=== PATIENT | female | born 1955 | race Caucasian/White ===

== ENCOUNTER 2021-02-02 11:42 | Emergency (ER) | payer MEDICARE, MEDICAID, SELFPAY ==
[2021-02-02 11:44] VITALS: BP 127/115; PULSE 66; RESP 18; TEMP 36.6; O2SAT 97; BMI 31.4
--- NOTE | 2021-02-02 11:56 | CT_ITS ---
STUDY: CT ABDOMEN AND PELVIS WITH CONTRAST REASON FOR EXAM: Female, 65 years old. Abdominal pain. Near syncope. RADIATION DOSAGE (If Supplied By Facility): CTDIvol = ( 16.88 ) mGy, DLP = ( 916.54 ) mGycm TECHNIQUE: Transaxial images were obtained from the dome of the diaphragm to the symphysis pubis without oral contrast. IV 100mL Isovue-300 was administered. Sagittal and coronal images were reconstructed. Individualized dose optimization techniques were used for this CT. COMPARISON: None. FINDINGS: The visualized lung bases are unremarkable. The visualized portions of the heart are within normal limits. Normal liver. There are surgical clips in the gallbladder fossa consistent with a prior cholecystectomy. Normal spleen. Normal pancreas. Normal bilateral adrenal glands. There is a 2.2 cm x 2.3 cm cyst in the upper medial aspect of the right kidney. Normal left kidney. Normal visualized stomach. Normal small intestine. There are multiple colonic diverticula consistent with diverticulosis. There is non-visualization of the appendix. There is scattered atherosclerotic calcification of the abdominal aorta, without a demonstrated aneurysm. Normal inferior vena cava. Normal retroperitoneum. Normal urinary bladder. There is absence of the uterus consistent with a prior hysterectomy. There is a 3.2 cm x 2.8 cm complex solid and cystic mass overlying the right external iliac artery in the right side of the pelvis. This may represent a right ovarian mass versus adenopathy. Correlation with a pelvic sonogram is recommended. Normal abdominal wall. There are degenerative changes of the visualized lumbar spine. There is a grade 1 anterior listhesis of L4 on L5 secondary to facet joint osteoarthritis. CT/Abdomen/Pelvis W IV Cont ONLY IMPRESSION: 2.2 cm x 2.3 cm cyst in the upper medial aspect of the right kidney. 3.2 cm x 2.8 cm complex solid and cystic mass overlying the right external iliac artery and the right-sided pelvis. Correlation with a pelvic sonogram is recommended. Electronically Signed: Paulino Broderick MD at 13:43 EDT , Service support ,
--- NOTE | 2021-02-02 11:57 | EDS_ITS ---
HPI History of Present Illness Chief Complaint: Nausea/Vomiting Informant: patient Narrative Narrative: 65-year-old female presents the emergency room for abdominal pain. Patient states that she recently moved to [place] from the [facility]. She states that for about 5 days she has had a pain in her bilateral flanks and left and right abdomen. She states that currently she only has the pain in the right lower abdomen. She states that it reminds her of when she had a kidney stone in the past. She notes that this morning she felt faint. She had multiple large loose bowel movements. No reported fevers. She denies any urinary symptoms. States she had some Flomax and some Ultram left over from her kidney stone so she to use that past couple nights but not last night. She saw primary care at the [facility] on Monday and is scheduled today for an ultrasound and x- rays. She states she was able to get the ultrasound done but felt faint so they called the ambulance to bring her to emergency. [facility] Medical History Aortic aneurysm Asthma Autoimmune hemolytic anemia CIDP (chronic inflammatory demyelinating polyneuropathy) Essential hypertension GBS (Guillain [place] syndrome) Kidney stone Home Medications Probiotic 02/02/21 [History Last Taken Unknown] acetaminophen [Tylenol] 650 mg PO Q6H PRN 02/02/21 [History Last Taken Unknown] albuterol sulfate 2 puff INHALATION Q4H PRN 02/02/21 [History Last Taken Unknown] alprazolam 0.25 mg PO QHS PRN 02/02/21 [History Last Taken Unknown] amlodipine 5 mg PO DAILY 02/02/21 [History Last Taken Unknown] aspirin 81 mg PO DAILY 02/02/21 [History Last Taken Unknown] biotin 1 mg PO DAILY PRN 02/02/21 [History Last Taken Unknown] calcium carbonate-vitamin D3 02/02/21 [History Last Taken Unknown] diclofenac sodium [Voltaren] 75 mg PO BID PRN 02/02/21 [History Last Taken Unknown] doxycycline monohydrate 100 mg PO BID #14 capsule 02/02/21 [Rx Last Taken Unknown] hydrochlorothiazide 12.5 mg PO DAILY 02/02/21 [History Last Taken Unknown] ipratropium bromide [Atrovent] 2 spray INTRANASAL BID 02/02/21 [History Last Taken Unknown] latanoprost 1 drp EACH EYE QHS 02/02/21 [History Last Taken Unknown] magnesium 250 mg PO DAILY 02/02/21 [History Last Taken Unknown] pregabalin [Lyrica] 50 mg PO BID 02/02/21 [History Last Taken Unknown] tamsulosin [Flomax] 0.4 mg PO QHS 02/02/21 [History Last Taken Unknown] thiamine HCl (vitamin B1) 02/02/21 [History Last Taken Unknown] timolol maleate [Timoptic] 1 drp EACH EYE DAILY 02/02/21 [History Last Taken Unknown] turmeric mg PO DAILY 02/02/21 [History Last Taken Unknown] vitamin E 02/02/21 [History Last Taken Unknown] Allergy/AdvReac Type Severity Reaction Status Date / Time levofloxacin [From Levaquin] Allergy Hives Verified 02/02/21 11:52 Penicillins Allergy Rash Verified 02/02/21 11:52 prednisone Allergy Rash Verified 02/02/21 11:52 acetaminophen [From Percocet] AdvReac PT UNSURE Verified 02/02/21 11:52 OF REACTION bee pollen AdvReac PT UNSURE Verified 02/02/21 11:52 OF REACTION cefaclor [From Ceclor] AdvReac Swelling Verified 02/02/21 11:52 ciprofloxacin AdvReac PT UNSURE Verified 02/02/21 11:52 OF REACTION clindamycin AdvReac Diarrhea Verified 02/02/21 11:52 codeine AdvReac PT UNSURE Verified 02/02/21 11:52 OF REACTION fluoxetine [From Prozac] AdvReac PT UNSURE Verified 02/02/21 11:52 OF REACTION green pepper AdvReac PT UNSURE Verified 02/02/21 11:52 OF REACTION house dust AdvReac PT UNSURE Verified 02/02/21 11:52 OF REACTION immune globulin,alpha (IgA) AdvReac PT UNSURE Verified 02/02/21 11:52 OF REACTION naproxen AdvReac Upset Verified 02/02/21 11:52 Stomach oxycodone [From Percocet] AdvReac PT UNSURE Verified 02/02/21 11:52 OF REACTION Sulfa (Sulfonamide AdvReac Rash Verified 02/02/21 11:52 Antibiotics) Surgical History Hx of cholecystectomy Social History (Updated 02/02/21 @ 12:[address] Maxim Parson DO) Smoking Status: Former smoker substance use type: does not use ROS ROS ED Constitutional Constitutional ED: Denies chills or weight loss Eyes Eyes: Denies change in vision or diplopia ENT ENT ED: Denies ear pain, rhinorrhea or sore throat Cardiovascular Cardiovascular: Denies chest pain, orthopnea, palpitations or racing heartbeat Respiratory/Chest Respiratory/Chest: Denies cough, dyspnea or orthopnea Gastrointestinal Gastrointestinal: Reports abdominal pain; Denies diarrhea, nausea or vomiting Genitourinary Genitourinary ED: Denies dysuria, hematuria or urinary frequency Musculoskeletal Musculoskeletal: Denies arthralgias or myalgias Integumentary Denies abscess or rash Neurologic Neurologic: Denies headache(s) or weakness Psychiatric Psychiatric: Denies anxiety, depression, suicidal ideation or suicidal thoughts Endocrine Endocrinology: Denies polydipsia, polyphagia or polyuria Allergic/Immunologic Allergic/Immunologic ED: Denies mouth swelling, tongue swelling or urticaria EXAM Physical Exam Const Vital Signs: 02/02/21 11:44 02/02/21 12:38 Temperature 97.8 F Temperature Source Temporal Pulse Rate 66 63 Respiratory Rate 18 12 Blood Pressure 127/115 H 139/93 H Blood Pressure Mean 119 108 Pulse Ox 97 97 Oxygen Delivery Method Room Air Room Air Positive well nourished and well developed General Appearance ED: well developed HEENT Reports normocephalic, head/scalp atraumatic and moist mucous membranes Eyes PERRL and EOMs intact bilaterally Neck no lymphadenopathy, supple and no JVD Resp normal respiratory effort and clear to auscultation bilaterally Cardio regular rate, regular rhythm and no murmurs GI Palpation: soft and tender RLQ; Negative for guarding or rebound tenderness present Back/Spine no CVA tenderness and normal ROM Extremity normal to inspection General Extremety ED: Negative for edema General Extremity: Negative for edema Neuro oriented x3 and CN's II-XII intact bilaterally Sensorium / Orientation: alert Motor Exam: strength 5/5 throughout Psych mental status grossly normal Mood & Affect: Negative for depressed or tearful Skin no rashes or lesions noted and no wounds MDM MDM MDM Narrative Medical decision making narrative: Basic blood work is negative. Urinalysis is normal. CT the abdomen pelvis with IV contrast demonstrates a 2 x 2 centimeter cyst in the right kidney. There is a 3 x 3 complex solid and cystic mass overlying the right external iliac artery and the right side of the pelvis. The patient states that she has had a hysterectomy and believes that her ovaries have been removed. So the most likely source would be a enlarged lymph node. So at this point we are going to place the patient on Doxy because of the limited choices we have with her allergies. Recommend the patient follow-up with her physician on this. May need further evaluation with MRI or ultrasound. Do not see anything emergent going on. Lab Data Attestation: I reviewed the patient's lab results. Labs: Laboratory Results - last 24 hr 02/02/21 02/02/21 02/02/21 12:10 12:10 13:15 WBC 8.5 RBC 4.84 Hgb 13.6 Hct 43.2 MCV 89.3 MCH 28.1 MCHC 31.5 L RDW Std Deviation 45.[address] of [address] 13.8 Plt Count 246 MPV 10.4 Immature Gran % (Auto) 0.200 Neut % (Auto) 79.0 H Lymph % (Auto) 12.4 L Mcd[place] % (Auto) 7.7 Eos % (Auto) 0.5 Baso % (Auto) 0.2 Absolute Neuts (auto) 6.7 Absolute Lymphs (auto) 1.06 Nucleated RBC % 0 Sodium 136 Potassium 3.7 Chloride 103 Carbon Dioxide 33.0 H Anion Gap 0 L BUN 12 Creatinine 0.63 Estim Creat Clear Calc 47.14 Est GFR (MDRD) Af Amer 122 Est GFR (MDRD) Non-Af 101 BUN/Creatinine Ratio 19.1 Glucose 97 Calcium 9.1 Total Bilirubin 1.30 H AST 20 ALT 28 Alkaline Phosphatase 85 Total Protein 7.3 Albumin 3.5 Globulin 3.8 Albumin/Globulin Ratio 0.9 Lipase 101 Urine Color Straw Urine Clarity Clear Urine pH 8.0 Ur Specific [place] 1.015 Urine Protein Negative Urine Glucose (UA) Normal Urine Ketones Negative Urine Occult Blood Negative Urine Nitrite Negative Urine Bilirubin Negative Urine Urobilinogen Normal Ur Leukocyte Esterase Negative Urine RBC 0 SEEN Urine WBC 0 SEEN Ur Squamous Epith Cells 0-5 SEEN Urine Bacteria 0 SEEN Urine Mucus 0 SEEN Radiography Diagnostic Testing: Radiology Impression Abdomen/Pelvis CT 02/02/21 11:56 IMPRESSION: 2.2 cm x 2.3 cm cyst in the upper medial aspect of the right kidney. 3.2 cm x 2.8 cm complex solid and cystic mass overlying the right external iliac artery and the right-sided pelvis. Correlation with a pelvic sonogram is recommended. Electronically Signed: Paulino Broderick MD at 13:43 EDT , Service support , Discharge Plan Triage Chief Complaint: Nausea/Vomiting Other Complaint: Syncope ED Provider: Maxim Parson Dx/Rx/DC Orders Clinical Impression: Abdominal pain, acute, Lymph node enlargement Prescriptions: New doxycycline monohydrate 100 MG capsule 100 mg PO BID Qty: 14 RF: 0 No Action amlodipine 5 mg Tablet 5 mg PO DAILY RF: 0 alprazolam 0.25 mg Tablet 0.25 mg PO QHS PRN (Reason: Anxiety) RF: 0 aspirin 81 mg Tablet,Chewable 81 mg PO DAILY RF: 0 albuterol sulfate 90 mcg/actuation Hfa Aerosol Inhaler 2 puff INHALATION Q4H PRN (Reason: Wheezing) RF: 0 biotin 1 mg Tablet 1 mg PO DAILY PRN (Reason: supplement) RF: 0 acetaminophen [Tylenol] 325 mg Capsule 650 mg PO Q6H PRN (Reason: Pain) RF: 0 hydrochlorothiazide 12.5 mg Capsule 12.5 mg PO DAILY RF: 0 diclofenac sodium [Voltaren] 75 mg Tablet,Delayed Release (Dr/Ec) 75 mg PO BID PRN (Reason: Pain) RF: 0 ipratropium bromide [Atrovent] 21 mcg (0.03 %) [place],Non-Aerosol 2 spray INTRANASAL BID RF: 0 calcium carbonate-vitamin D3 RF: 0 latanoprost 0.005 % Drops 1 drp EACH EYE QHS RF: 0 tamsulosin [Flomax] 0.4 mg Capsule 0.4 mg PO QHS RF: 0 magnesium 250 mg Tablet 250 mg PO DAILY RF: 0 timolol maleate [Timoptic] 0.5 % Drops 1 drp EACH EYE DAILY RF: 0 pregabalin [Lyrica] 50 mg Capsule 50 mg PO BID RF: 0 turmeric 400 mg Capsule PO DAILY RF: 0 Probiotic RF: 0 thiamine HCl (vitamin B1) RF: 0 vitamin E RF: 0 Primary Care Provider: Precious Brian Referrals: Precious Brian MD [Primary Care Provider] - 3-5 Days Disposition Disposition: Home, Self Care
[2021-02-02] MEDS: Ketorolac 15 MG/ML Vial IV (12:14)
[2021-02-02] MEDS: 0.9% Normal Saline 1,000 ML 1000 ML IV (12:14)
[2021-02-02 12:22] LABS: Absolute Lymphocyte Count 1.06 X10^3/uL (0.83-4.51); Absolute Neutrophil Count 6.7 X10^3/uL (2.0-7.7); Basophil# 0.02 X10^3/uL; Basophil% 0.2 % (0-1); Eosinophil# 0.04 X10^3/uL; Eosinophils% 0.5 % (0-5); Hematocrit 43.2 % (37-47); Hemoglobin 13.6 g/dL (12.0-15.0); Lymphocyte # 1.06 X10^3/ul (0.83-4.51); Lymphocyte % 12.4 % (19-41); Mean Corp Hgb Conc 31.5 g/dL (32-36); Mean Corpuscular Hgb 28.1 pg (27.0-32.0); Mean Corpuscular Volume 89.3 fL (81-99); Mean Platelet Vol. 10.4 fl (6.2-12.0); Monocyte# 0.66 X10^3/uL; Monocyte% 7.7 % (0-10); NRBC Flagged by Analyzer 0 % (0-5); Neutrophil # 6.72 X10^3/uL (2.7-7.7); Platelet Count 246 K/mm3 (150-450); RBC Distribution Width CV 13.8 % (11.6-14.6); Red Blood Count 4.84 M/mm3 (4.2-5.4); White Blood Count 8.5 K/mm3 (4.4-11.0)
[2021-02-02] MEDS: Ondansetron 4 MG/2 ML Vial IV (12:32)
[2021-02-02 12:38] VITALS: BP 139/93; PULSE 63; RESP 12; O2SAT 97
[2021-02-02 12:38] LABS: ALB/GLOB Ratio 0.9 RATIO (0.9-2.4); AST(SGOT) 20 U/L (15-37); Alanine Aminotransfer ALT/SGPT 28 U/L (13-56); Albumin, Serum 3.5 g/dL (3.2-5.0); Alkaline Phosphatase 85 U/L (45-117); Anion Gap 0 (5-15); BUN 12 mg/dL (7-18); BUN/Creat Ratio 19.1 RATIO (10-20); Calcium,Total 9.1 mg/dL (8.5-10.1); Chloride 103 mmol/L (98-107); Creatinine, Serum 0.63 mg/dL (0.55-1.02); EST Glomerular Filtration Rate 101 mL/min (>60); Est Glom Filt Rate - Afr Amer 122 mL/min (>60); Estimated Creatinine Clearance 47.14 ml/min; Globulin 3.8 g/dL (2.2-4.2); Glucose 97 mg/dL (74-106); Lipase 101 U/L (73-393); Potassium 3.7 mmol/L (3.5-5.1); Protein, Total 7.3 g/dL (6.4-8.2); Sodium Level 136 mmol/L (136-145)
[2021-02-02 13:21] LABS: Bacteria 0 SEEN /hpf (None Seen); Color, Urine Straw (Yellow); Glucose, Dipstick Normal (Normal); Ketone-Dipstick Negative (Negative); Leukocyte Esterase-Dipstick Negative /ul (Negative); Mucous, Urine 0 SEEN /hpf (<or=2+); Nitrite-Dipstick Negative (Negative); Occult Blood-Urine Negative /ul (Negative); Protein-Dipstick Negative (Negative); Red Blood Cells-Urine 0 SEEN /hpf (0-5); Specific Gravity, Urine 1.015 (1.002-1.030); Urine Bilirubin Dipstick Negative (Negative); Urine Clarity Clear (Clear); Urine Urobilinogen Normal (Normal); White Blood Cells 0 SEEN /hpf (0-5)
[2021-02-02 13:27] LABS: Squamous Epithelial Cells - UA 0-5 SEEN /hpf (5-10)
[2021-02-02 14:18] VITALS: BP 131/89; PULSE 66; RESP 16; O2SAT 99
== END 2021-02-02 14:20 | disposition home or self-care (01) ==
PROVIDERS: Emergency Provider Emergency Medicine; PCP Internal Medicine
DX: R59.9 Enlarged lymph nodes, unspecified (principal); R10.31 Right lower quadrant pain; J45.909 Unspecified asthma, uncomplicated; Q61.01 Congenital single renal cyst; I10 Essential (primary) hypertension; Z79.51 Long term (current) use of inhaled steroids; Z79.899 Other long term (current) drug therapy; Z87.891 Personal history of nicotine dependence
CPT/HCPCS: 74177; 80053; 81001; 83690; 85025; 96361; 96374; 96375; 99285; J7030; Q9967; A4216; J2405

== ENCOUNTER → 2021-10-25 | Outpatient (CLI) | payer MEDICARE, MEDICAID, SELFPAY ==
[2021-10-25 14:21] LABS: Red Blood Cells-Urine 0 SEEN /hpf (0-5)
[2021-10-25 15:25] LABS: Absolute Lymphocyte Count 1.87 X10^3/uL (0.83-4.51); Basophil# 0.04 X10^3/uL; Basophil% 0.7 % (0-1); Eosinophil# 0.05 X10^3/uL; Eosinophils% 0.9 % (0-5); Hematocrit 45.1 % (37-47); Hemoglobin 14.4 g/dL (12.0-15.0); Lymphocyte # 1.87 X10^3/ul (0.83-4.51); Lymphocyte % 32.7 % (19-41); Mean Corp Hgb Conc 31.9 g/dL (32-36); Mean Corpuscular Hgb 28.6 pg (27.0-32.0); Mean Corpuscular Volume 89.7 fL (81-99); Mean Platelet Vol. 11.1 fl (6.2-12.0); Monocyte# 0.72 X10^3/uL; Monocyte% 12.6 % (0-10); NRBC Flagged by Analyzer 0 % (0-5); Neutrophil # 3.02 X10^3/uL (2.7-7.7); Neutrophil % 52.9 % (47-70); Platelet Count 254 K/mm3 (150-450); RBC Distribution Width CV 13.8 % (11.6-14.6); RBC Distribution Width SD 45.3 fl (35.1-43.9); Red Blood Count 5.03 M/mm3 (4.2-5.4); White Blood Count 5.7 K/mm3 (4.4-11.0)
[2021-10-25 15:35] LABS: Color, Urine Yellow (Yellow); Glucose, Dipstick Normal (Normal); Ketone-Dipstick Negative (Negative); Leukocyte Esterase-Dipstick 25 /ul (Negative); Nitrite-Dipstick Negative (Negative); Occult Blood-Urine Negative /ul (Negative); Protein-Dipstick 15 mg/dl (Negative); Specific Gravity, Urine 1.015 (1.002-1.030); Urine Bilirubin Dipstick Negative (Negative); Urine Clarity Clear (Clear); Urine Urobilinogen 1 mg/dl (Normal)
[2021-10-25 15:39] LABS: Vitamin D,25 Hydroxy 48.1 ng/mL
[2021-10-25 15:54] LABS: Bacteria RARE /hpf (None Seen); Mucous, Urine RARE /hpf (<or=2+); Squamous Epithelial Cells - UA 0-5 SEEN /hpf (5-10); White Blood Cells 0-5 SEEN /hpf (0-5)
[2021-10-25 16:25] LABS: ALB/GLOB Ratio 0.9 RATIO (0.9-2.4); AST(SGOT) 18 U/L (15-37); Alanine Aminotransfer ALT/SGPT 26 U/L (13-56); Albumin, Serum 3.8 g/dL (3.2-5.0); Alkaline Phosphatase 93 U/L (45-117); Anion Gap 7 (5-15); BUN 17 mg/dL (7-18); BUN/Creat Ratio 21.4 RATIO (10-20); Calcium,Total 9.5 mg/dL (8.5-10.1); Chloride 105 mmol/L (98-107); Cholesterol 221 mg/dL (200); Creatinine, Serum 0.79 mg/dL (0.55-1.02); EST Glomerular Filtration Rate 76 mL/min (>60); Est Glom Filt Rate - Afr Amer 92 mL/min (>60); Free T3 3.2 pg/mL (2.18-3.98); Globulin 4.1 g/dL (2.2-4.2); Glucose 89 mg/dL (74-106); High Density Lipoprotein 80 mg/dL; Magnesium 2.2 mg/dL (1.6-2.6); Potassium 4.1 mmol/L (3.5-5.1); Protein, Total 7.9 g/dL (6.4-8.2); Sodium Level 137 mmol/L (136-145); T4 Free Direct 1.12 ng/dL (0.76-1.46); Thyroid Stim Hormone (TSH) 0.87 uIU/mL (0.358-3.74); Triglycerides 125 mg/dL; Very Low Density Lipoprotein 25 mg/dL (5-40)
== END | disposition home or self-care (01) ==
LOC: OPBI 14:20
PROVIDERS: PCP Internal Medicine; Visit Provider Internal Medicine
DX: I10 Essential (primary) hypertension (principal); G61.0 Guillain-Barre syndrome; G61.81 Chronic inflammatory demyelinating polyneuritis; G89.29 Other chronic pain; H40.9 Unspecified glaucoma; R10.9 Unspecified abdominal pain; E55.9 Vitamin D deficiency, unspecified
CPT/HCPCS: 36415; 80053; 80061; 81001; 82306; 83735; 84439; 84443; 84481; 85025; 87086; 87088

== ENCOUNTER → 2021-10-27 | Outpatient (CLI) | payer MEDICARE, MEDICAID, SELFPAY | END | disposition home or self-care (01) | LOC: LAB 15:32 | PROVIDERS: PCP Internal Medicine; Referring Provider Internal Medicine Cardiovascular Disease; Visit Provider Internal Medicine Cardiovascular Disease | DX: Z00.00 Encounter for general adult medical examination without abnormal findings (principal) ==

== ENCOUNTER → 2021-10-28 | Outpatient (CLI) | payer MEDICARE, MEDICAID, SELFPAY ==
[2021-10-28 14:46] LABS: Bacteria 0 SEEN /hpf (None Seen); Mucous, Urine 0 SEEN /hpf (<or=2+); Red Blood Cells-Urine 0 SEEN /hpf (0-5); White Blood Cells 0 SEEN /hpf (0-5)
[2021-10-28 16:53] LABS: Color, Urine Yellow (Yellow); Glucose, Dipstick Normal (Normal); Ketone-Dipstick 5 mg/dl (Negative); Leukocyte Esterase-Dipstick Negative /ul (Negative); Nitrite-Dipstick Negative (Negative); Occult Blood-Urine Negative /ul (Negative); Protein-Dipstick Negative (Negative); Urine Bilirubin Dipstick Negative (Negative); Urine Clarity Clear (Clear); Urine Urobilinogen Normal (Normal)
[2021-10-28 17:55] LABS: Squamous Epithelial Cells - UA 0-5 SEEN /hpf (5-10)
== END | disposition home or self-care (01) ==
LOC: BIMLAB 14:45
PROVIDERS: PCP Internal Medicine; Referring Provider Internal Medicine; Visit Provider Internal Medicine
DX: R30.0 Dysuria (principal)
CPT/HCPCS: 81001; 87086; 87088

== ENCOUNTER → 2021-11-09 | Outpatient (CLI) | payer MEDICARE, MEDICAID, SELFPAY ==
--- NOTE | 2021-11-09 16:19 | US_ITS ---
EXAM: US PELVIS TRANSABDOMINAL, COMPLETE CLINICAL INDICATION: [id number] TECHNIQUE: Transabdominal pelvic ultrasound was performed with grayscale and color Doppler imaging. This report was created using [employer] report generation technology. COMPARISON: CT abdomen and pelvis 02/02/2021 FINDINGS: Uterus is absent. Neither ovary identified. No adnexal mass or free pelvic fluid. BLADDER: Unremarkable as visualized. Wall is normal thickness for degree of distention. US/Pelvic (Non ) IMPRESSION: Empty pelvis. Electronically Signed: Barry Whitney MD at 11:11 EDT ,
--- NOTE | 2021-11-09 16:19 | CT_ITS ---
EXAM: CT CHEST WITH INTRAVENOUS CONTRAST CLINICAL INDICATION: To measure existing Thoracic Aortic Aneurysm TECHNIQUE: Helically acquired images were obtained of the chest with intravenous contrast. This CT exam was performed using one or more of the following dose reduction techniques: automated exposure control, adjustment of the mA and/or kV according to patient size, and/or use of iterative reconstruction technique. This report was created using [employer] report generation technology. CONTRAST: IV 100mL Isovue-370 COMPARISON: None. FINDINGS: LUNGS AND PLEURAL SPACES: Unremarkable. No mass. No consolidation or edema. No pleural effusion or thickening. No pneumothorax. HEART: Unremarkable. Heart size is normal. No pericardial effusion. No significant coronary artery calcifications. MEDIASTINUM: Unremarkable. No mediastinal or hilar adenopathy. Esophagus is unremarkable. No hiatal hernia. THYROID: Unremarkable. No thyroid lesions. BONES/JOINTS: Unremarkable. No suspicious lytic or blastic abnormality. VASCULATURE: Ascending thoracic aorta measures 4 cm in maximum diameter. There is normal distal tapering with the descending thoracic aorta measuring 2.6 cm. No aortic dissection. No evidence of pulmonary embolism. CT/CTA Chest W/WO Contrast IMPRESSION: 1. 4 cm ectasia of the ascending thoracic aorta. 2. No aortic dissection. 3. No acute cardiopulmonary abnormality. Electronically Signed: Barry Whitney MD at 11:55 EDT ,
== END | disposition home or self-care (01) ==
PROVIDERS: PCP Internal Medicine; Visit Provider Internal Medicine
DX: I10 Essential (primary) hypertension (principal); I71.2 Thoracic aortic aneurysm, without rupture; R10.31 Right lower quadrant pain
CPT/HCPCS: 71275; 76856; Q9967; A4216

== ENCOUNTER → 2021-11-24 | Outpatient (CLI) | payer MEDICARE, MEDICAID, SELFPAY ==
--- NOTE | 2021-11-24 12:52 | CT_ITS ---
STUDY: CT ABDOMEN AND PELVIS WITH CONTRAST REASON FOR EXAM: Female, 66 years old. RLQ pain, RLQ cystic mass CT 2020 -- Recent ultrasound did not visualize cystic mass RADIATION DOSAGE (If Supplied By Facility): CTDIvol = ( 15.11 ) mGy, DLP = ( 943.16 ) mGycm TECHNIQUE: Transaxial images were obtained from the dome of the diaphragm to the symphysis pubis with oral contrast. Oral and amp;amp; IV Readi-CAT and amp;amp; 50mL Isovue-300 was administered. Sagittal and coronal images were reconstructed. Individualized dose optimization techniques were used for this CT. COMPARISON: Comparison is made with prior examination dated 02/02/2021. FINDINGS: Minimal linear scarring in the anterior aspect of the left lower lobe. Minimal degree of pericardial thickening. Normal liver. There are surgical clips in the gallbladder fossa consistent with a prior cholecystectomy. Normal spleen. Normal pancreas. Normal bilateral adrenal glands. Normal right kidney. Normal left kidney. There is a small hiatal hernia. Normal small intestine. There are multiple colonic diverticula consistent with diverticulosis. The appendix is visualized and appears normal. There is scattered atherosclerotic calcification of the abdominal aorta, without a demonstrated aneurysm. Normal inferior vena cava. Normal retroperitoneum. Normal urinary bladder. The patient is status post hysterectomy. There is a 3 cm x 2.5 cm cyst in the left ovary. 2.6 cm x 1.9 cm cyst in the right ovary. Normal abdominal wall. There are diffuse degenerative changes of the visualized lumbar spine. Grade 1 anterior listhesis of L4 on L5. CT/Abdomen/Pelvis WITH Contrast IMPRESSION: 3 cm x 2.5 cm cyst in the left ovary. 2.6 cm x 1.9 cm cyst in the right ovary. Electronically Signed: Paulino Broderick MD at 14:07 EDT ,
== END | disposition home or self-care (01) ==
LOC: CT 12:51
PROVIDERS: PCP Internal Medicine; Referring Provider Internal Medicine; Visit Provider Internal Medicine
DX: R19.03 Right lower quadrant abdominal swelling, mass and lump (principal)
CPT/HCPCS: 74177; Q9967

== ENCOUNTER → 2021-12-07 | Outpatient (CLI) | payer MEDICARE, MEDICAID, SELFPAY ==
[2021-12-07 09:05] LABS: Lyme Ab Screen Interpretation REF LAB
[2021-12-07 10:11] LABS: Erythrocyte Sedimentation Rate 21 mm/hr (0-30)
[2021-12-07 10:13] LABS: Hematocrit 44.2 % (37-47); Hemoglobin 14.4 g/dL (12.0-15.0); Mean Corp Hgb Conc 32.6 g/dL (32-36); Mean Corpuscular Hgb 28.5 pg (27.0-32.0); Mean Corpuscular Volume 87.4 fL (81-99); Mean Platelet Vol. 11.3 fl (6.2-12.0); Platelet Count 214 K/mm3 (150-450); RBC Distribution Width CV 13.6 % (11.6-14.6); Red Blood Count 5.06 M/mm3 (4.2-5.4); White Blood Count 4.9 K/mm3 (4.4-11.0)
[2021-12-07 10:21] LABS: Anion Gap 9 (5-15); BUN 15 mg/dL (7-18); BUN/Creat Ratio 21.9 RATIO (10-20); CPK Total, Creatine Kinase 70 U/L (26-192); CRP < 2.90 mg/L (0.0-3.0); Calcium,Total 9.4 mg/dL (8.5-10.1); Chloride 103 mmol/L (98-107); Creatinine, Serum 0.68 mg/dL (0.55-1.02); EST Glomerular Filtration Rate 91 mL/min (>60); Est Glom Filt Rate - Afr Amer 110 mL/min (>60); Glucose 94 mg/dL (74-106); Potassium 3.9 mmol/L (3.5-5.1); Sodium Level 139 mmol/L (136-145)
[2021-12-09 14:50] LABS: ANTINUCLEAR ANTIBODIES DIRECT Negative (Negative)
[2021-12-21 07:07] LABS: Aldolase 3.3 U/L (3.3-10.3); Free Kappa Light Chains 15.2 mg/L (3.3-19.4); Free Lambda Light Chains 13.8 mg/L (5.7-26.3)
[2021-12-21 16:55] LABS: Lyme Scn Total Ab w/Rflx Negative (Negative); Myoglobin, Serum 24 ng/mL (25-58)
== END | disposition home or self-care (01) ==
LOC: MTLAB 09:01
PROVIDERS: PCP Internal Medicine; Referring Provider Psychiatry & Neurology Neurology; Visit Provider Psychiatry & Neurology Neurology
DX: R53.83 Other fatigue (principal); G61.0 Guillain-Barre syndrome; M35.00 Sjogren syndrome, unspecified; Z87.898 Personal history of other specified conditions; Z86.69 Personal history of other diseases of the nervous system and sense organs
CPT/HCPCS: 36415; 80048; 82085; 82550; 82746; 83874; 83883; 84425; 85027; 85652; 86038; 86140; 86225; 86235; 86618

== ENCOUNTER 2022-01-17 13:30 | Outpatient (RCR) | payer MEDICARE, MEDICAID, SELFPAY ==
--- NOTE | 2021-08-23 14:29 | HP.PTEVAL ---
Patient's Visit Information SALAZAR ARIAS is a 66 year old F referred to Physical Therapy by Dr. Nayeli Jose MD with a diagnosis of Chronic Inflam Demylenation Polyneuritis. Date of Evaluation: 08/23/21 Physical Therapist: Carmen Meier DPT - Visit Plan Frequency: 3x /Week Duration: 4 Weeks Plan: LE and core strength/stabilization- aquatic therapy. - Subjective In 2017 in Feb she had a rash all over her body and went to Urgent Care and they sent her home with Prednisone and the rash continued to get worse and she was getting weaker and weaker. She ended up in the ER in [place] they dismissed her and sent her home. The very next day she was worried and went into the ER in [place] and they sent her to munitions handler and turbinated bone grinder- everyone just kept passing her around. She finally fell and couldn't get up- she called EMS. A friend took her to [facility]- she was in hallway for 24 hours and then was completely paralyzed from the chest down. They did MRI and EEG's, spinal taps, etc. Gave her IVFG and then went into a coma from the medication and was in ICU for 5-7 days. They started her on magnus steroids- went to her rehab- diagnosed with chronic inflammatory demyelinating polyneuropathy and [place] the chronic due to not catching it quick enough. She was scheduled for a right TKR but was unable to have it. Sent home with her brother who was not much help. She is now living by herself- in an apartment in [place]. She has no stairs to enter. She is fully I with all ADL's and driving. She does have a home health that will be starting to do 2 hours a week- wants to take a bath but is afraid and help with vacuuming. She has grab bars put into her bathroom. She has 24 hour pain in fingers and feet- it feels like thorns are coming up through the skin but it gets more accentuated- she then takes her Lyrica. She uses a rollerator all the time. She feels that it takes the pressure of her spine and the right knee. Does have pain all over- after activity is worse. Eases: being around people, sitting outside. Sleep: disturbed. PMHx/Meds: see list in chart. - Objective Posture: FH, RS- can correct with verbal cues but does not maintain. Gait: antalgic- decreased step length on the left LE- hip translation- unstable stance phase. HR/TR: able. SLS: weight shift but unable to SLS. Stairs: asc/desc 8 non recip. ROM: WFL in all planes. Strength: Core: fair minus, Left Hip: 4/5, Knee: 4+/5 Ankle: 4+/5 Right: Hip: 4/5, Knee: 4+/5, Ankle: 4+/5. Flex: HS: moderate, Gastroc: severe - Balance/Special Test Scores Functional Gait Assessment Score: 19 % Disability: 36.6700 Lower Extremity Functional Score: 25 TUG Test Time Seconds: 15 30 Second Chair Rise Test Seconds: 9 - Goals Goal 1:: Patient will be I with HEP and progression Goal Time Frame: 4-6 Weeks Goal 2:: Patient will ambulate >300 feet with normalized gait pattern and LRD Goal Time Frame: 4-6 Weeks Goal 3:: Patient will TUG test less than 10 seconds Goal Time Frame: 4-6 Weeks Goal 4:: Patient will sit to stand without UE A x10 Goal Time Frame: 4-6 Weeks Goal 5:: Patient will asc/desc 8 recip with 1 HR Goal Time Frame: 4-6 Weeks Goal 6:: Patient will subjectively report 80% better. Goal Time Frame: 4-6 Weeks - Rehabilitation Potential Physical Therapy Diagnosis: Patient presents with hypomobility- she has decreased LE and core strength/stabilization, proprioception and muscular endurance leading to abnormal balance, gait and functional mobility. Rehabilitation Potential: Fair - Anticipated Interventions Patient/Client Instruction: Educate patient on: Benefits of Fitness Program Therapeutic Exercise to Include: Strength training, Endurance training, Balance training, Coordination, Agility training, Body mechanics, Postural training, Flexibilty training, Gait and locomotor training, Neuromotor development, In an aquatic setting, Dynamic Lumbar Stabilization, Scapular Strength/Stabilization For the Purpose of:: To improve muscle performance and motor function Thank you for the opportunity to evaluate your patient. For Medicare and Medicare HMO plans, please review the plan of care and approve it. It will need to be FAXED BACK to us at [phone] for Medicare purposes. For Medicare only, by signing this I certify the plan of care. Please let me know if there are questions or concerns regarding this plan of care. Physician Signature: Date:
--- NOTE | 2021-10-11 15:37 | HP.PTREVAL ---
Dr. Nayeli Jose MD, It has been my pleasure to treat SALAZAR ARIAS over the last 8 visits for Chronic Inflam Demylenation Polyneuritis. Please see the progress note below for an update on the physical therapy plan of care! Subjective: Patient reports that she was getting better until she started having breathing problems and kidney stones. Has doctors apts for the next three weeks. She has been having sharp pains in her right hip. Dr. Douglas prescribed an opiate that she took for 3 days and was having such SOB she stopped taking it and called them to tell them she stopped. She would like to continue therapy- and thinking about [facility]. Objective/Function: Posture: FH, RS- can correct with verbal cues but does not maintain. Gait: antalgic- decreased step length on the left LE- hip translation- unstable stance phase. HR/TR: able. SLS: weight shift but unable to SLS. Stairs: asc/desc 8 non recip. ROM: WFL in all planes. Strength: Core: fair minus, Left Hip: 4+/5, Knee: 4+/5 Ankle: 4+/5 Right: Hip: 4+/5, Knee: 4+/5, Ankle: 4+/5. Flex: HS: moderate, Gastroc: severe. - Balance/Special Test Scores. Functional Gait Assessment Score: 22. % Disability: 36.6700. TUG Test Time Seconds: 13. 30 Second Chair Rise Test Seconds: 11 Plan Plan: Continue-LE and core strength/stabilization Balance/Gait/Functional tests - Balance/Special Test Scores Functional Gait Assessment Score: 19 % Disability: 36.6700 Lower Extremity Functional Score: 31 TUG Test Time Seconds: 15 Tug Test: <20 sec.=mostly independent 30 Second Chair Rise Test Seconds: 9 Goals Goal 1:: Patient will be I with HEP and progression Goal Time Frame: 4-6 Weeks Goal Progress: Progressing Goal 2:: Patient will ambulate >300 feet with normalized gait pattern and LRD Goal Time Frame: 4-6 Weeks Goal Progress: Progressing Goal 3:: Patient will TUG test less than 10 seconds Goal Time Frame: 4-6 Weeks Goal Progress: Progressing Goal 4:: Patient will sit to stand without UE A x10 Goal Time Frame: 4-6 Weeks Goal Progress: Progressing Goal 5:: Patient will asc/desc 8 recip with 1 HR Goal Time Frame: 4-6 Weeks Goal Progress: Progressing Goal 6:: Patient will subjectively report 80% better. Goal Time Frame: 4-6 Weeks Goal Progress: Progressing Anticipated Interventions Patient/Client Instruction: Educate patient on: Benefits of Fitness Program Therapeutic Exercise to Include: Strength training, Endurance training, Balance training, Coordination, Agility training, Body mechanics, Postural training, Flexibilty training, Gait and locomotor training, Neuromotor development, In an aquatic setting, Dynamic Lumbar Stabilization, Scapular Strength/Stabilization For the Purpose of:: To improve muscle performance and motor function Please do not hesitate to contact me at [phone] by phone or if you have questions or concerns regarding this new plan of care! Sincerely, Carmen Meier DPT
--- NOTE | 2021-11-22 14:14 | HP.PTREVAL ---
Dr. Nayeli Jose MD, It has been my pleasure to treat SALAZAR ARIAS over the last 14 visits for Chronic Inflam Demylenation Polyneuritis. Please see the progress note below for an update on the physical therapy plan of care! Subjective: Patient reports that some days she is good and some days she is bad. She feels that her endurance is improving. Last Monday she was able to walk after therapy last week but today her knee is really bothering her. She has maybe one night of good sleep a week- right knee pain, hands and feet neuropathy. She is performing exercises with a band- hip abduction, wall push ups, LAQ and in the AM she does leg lifts, supine clams. Objective/Function: Very sore today- may influence objective measures: Posture: FH, RS- can correct with verbal cues but does not maintain. Gait: Rollator- antalgic- decreased step length on the left LE- hip translation- unstable stance phase - fully extended right knee HR/TR: able. SLS: weight shift but unable to SLS. Stairs: asc/desc 8 non recip with bilateral HR. ROM: WFL in all planes. Strength: Core: fair minus, Left Hip: 4+/5, Knee: 4+/5 Ankle: 4+/5 Right: Hip: 4+/5, Knee: 4+/5, Ankle: 4+/5. Flex: HS: moderate, Gastroc: severe. TUG Test Time Seconds: 12 with rollator Plan Plan: 11/22/21: Continue 2x a week for 3 weeks- FOCUS on [facility]. Balance/Gait/Functional tests - Balance/Special Test Scores Functional Gait Assessment Score: 19 % Disability: 36.6700 Lower Extremity Functional Score: 26 TUG Test Time Seconds: 15 Tug Test: <20 sec.=mostly independent 30 Second Chair Rise Test Seconds: 9 Goals Goal 1:: Patient will be I with HEP and progression Goal Time Frame: 4-6 Weeks Goal Progress: Progressing Goal 2:: Patient will ambulate >300 feet with normalized gait pattern and LRD Goal Time Frame: 4-6 Weeks Goal Progress: Progressing Goal 3:: Patient will TUG test less than 10 seconds Goal Time Frame: 4-6 Weeks Goal Progress: Progressing Goal 4:: Patient will sit to stand without UE A x10 Goal Time Frame: 4-6 Weeks Goal Progress: Progressing Goal 5:: Patient will asc/desc 8 recip with 1 HR Goal Time Frame: 4-6 Weeks Goal Progress: Progressing Goal 6:: Patient will subjectively report 80% better. Goal Time Frame: 4-6 Weeks Goal Progress: Progressing Anticipated Interventions Patient/Client Instruction: Educate patient on: Benefits of Fitness Program Therapeutic Exercise to Include: Strength training, Endurance training, Balance training, Coordination, Agility training, Body mechanics, Postural training, Flexibilty training, Gait and locomotor training, Neuromotor development, In an aquatic setting, Dynamic Lumbar Stabilization, Scapular Strength/Stabilization For the Purpose of:: To improve muscle performance and motor function Please do not hesitate to contact me at [phone] by phone or if you have questions or concerns regarding this new plan of care! Sincerely, Carmen Meier DPT
--- NOTE | 2022-01-17 14:14 | HP.PTDCSUM ---
It has been my pleasure to treat SALAZAR ARIAS referred by Dr. Nayeli Jose MD, with the diagnosis of Chronic Inflam Demylenation Polyneuritis for a total of 20 visit(s). Discharge Date: Please see the following information for a summary of their discharge status. Subjective: She does not feel that she is making any improvements. She was told by ortho that she is not to put pressure on the right LE. She has an EMG next week. She got a life alert button for safety. She has the most pain in her fingers and toes. The right knee is chronic. BUEs Pain Intensity (Out of 10): Unrated RLE Pain Intensity (Out of 10): Unrated Lumbar Spine Pain Intensity (Out of 10): Unrated % Improvement: 80 Objective/Function: No significant changes since last re-evaluation. Posture: FH, RS- can correct with verbal cues but does not maintain. Gait: Rollator- antalgic- decreased step length on the left LE- hip translation- unstable stance phase - fully extended right knee HR/TR: able. SLS: weight shift but unable to SLS. Stairs: asc/desc 8 non recip with bilateral HR (per MD recommendation). ROM: WFL in all planes. Strength: Core: fair minus, Left Hip: 4+/5, Knee: 4+/5 Ankle: 4+/5 Right: Hip: 4+/5, Knee: 4+/5, Ankle: 4+/5. Flex: HS: moderate, Gastroc: severe. Goal 1:: Patient will be I with HEP and progression Goal Progress: Progressing Goal 2:: Patient will ambulate >300 feet with normalized gait pattern and LRD Goal Progress: Progressing Goal 3:: Patient will TUG test less than 10 seconds Goal Progress: Progressing Goal 4:: Patient will sit to stand without UE A x10 Goal Progress: Progressing Goal 5:: Patient will asc/desc 8 recip with 1 HR Goal Progress: Progressing Goal 6:: Patient will subjectively report 80% better. Goal Progress: Progressing Plan: 01/17/22: Discharge to [facility]- encouraged to call with questions. 11/22/21: Continue 2x a week for 3 weeks- FOCUS on [facility]. If there are questions or concerns regarding this patient's physical therapy, please feel free to call me at [phone]. Thank you for the referral of this patient. Sincerely, Carmen Meier, DPT Balance/Gait/Functional tests - Balance/Special Test Scores Functional Gait Assessment Score: 19 % Disability: 36.6700 Lower Extremity Functional Score: 26 TUG Test Time Seconds: 15 Tug Test: <20 sec.=mostly independent 30 Second Chair Rise Test Seconds: 9
== END 2022-01-17 14:23 | disposition home or self-care (01) ==
LOC: PT 13:30
PROVIDERS: PCP Internal Medicine; Referring Provider Internal Medicine; Visit Provider Internal Medicine
DX: G61.81 Chronic inflammatory demyelinating polyneuritis (principal)
CPT/HCPCS: 97110; 97113; 97162; 97164

== ENCOUNTER → 2022-01-24 | Outpatient (CLI) | payer MEDICARE, MEDICAID, SELFPAY ==
--- NOTE | 2022-01-24 14:11 | NEURO ---
NCS and/or EMG Patient Report Ordering Doctor: John De Jesus DATE OF SERVICE: 01/24/22 Indication: History of CIDP previously treated with steroids, but now off treatment since 2019. Persistent fatigue and neuropathic pain in both hands and feet. Findings: Nerve conduction studies were performed in the right upper and lower extremities. The right median motor study recording the abductor pollicis brevis showed a normal amplitude, borderline distal latency and normal conduction velocity. The right ulnar motor study recording the abductor digiti minimi showed a normal amplitude, normal distal latency and normal conduction velocity. No conduction block or focal slowing was present across the elbow. The right median sensory response recording digit two showed a slightly reduced amplitude, borderline latency and mildly slowed conduction velocity. The right ulnar sensory response recording digit five showed a normal amplitude, latency and conduction velocity. The right radial sensory response recording over the extensor snuff box showed a normal amplitude, latency and conduction velocity. The right peroneal motor study recording the extensor digitorum brevis showed a normal amplitude, normal distal latency and normal conduction velocity. No conduction block or focal slowing was present across the fibular neck. The right tibial motor study recording the abductor hallucis brevis showed a normal amplitude, normal distal latency and normal conduction velocity. Right sural sensory response showed a normal amplitude and conduction velocity. Right superficial peroneal sensory response showed a normal amplitude and conduction velocity. Needle EMG of the right upper extremity muscles was performed. No denervation was present in any muscle. Motor units in the triceps were large amplitude and long duration. Motor units in the flexor carpi radialis were slightly large amplitude and long duration. The other muscles demonstrated normal motor unit morphology, activation, and recruitment patterns. Needle EMG of the right lower extremity muscles was performed. No denervation was present in any muscle. Motor unit morphology, activation, and recruitment patterns were normal. Impression: This is a mildly abnormal study. There is electrophysiologic evidence of a mild, chronic, right C7 radiculopathy. 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 Lastly, there is no electrophysiologic evidence of an acquired demyelinating polyneuropathy (i.e. CIDP, MMN). Philip Wall D.O. Multi Select Codes Neurology Neurology Interp Codes: 80341-42 Musc tst done w/nerv tst [place] (interp) (59), 62992-38 Musc test done w/n test comp (interp) and 56600-60 Nrv cndj test 11-12 studies (interp)
== END | disposition home or self-care (01) ==
LOC: PSN 12:09
PROVIDERS: PCP Internal Medicine; Referring Provider Psychiatry & Neurology Neurology; Visit Provider Psychiatry & Neurology Neurology
DX: G61.81 Chronic inflammatory demyelinating polyneuritis (principal); Z87.898 Personal history of other specified conditions; Z86.69 Personal history of other diseases of the nervous system and sense organs
CPT/HCPCS: 95885; 95886; 95912

== ENCOUNTER → 2022-03-15 | Outpatient (CLI) | payer MEDICARE, MEDICAID, SELFPAY ==
--- NOTE | 2022-03-15 12:41 | BI_ITS ---
MAMMOGRAPHY - BILATERAL SCREENING REASON FOR EXAM: Female, 66 years old. Routine annual screening examination. PERTINENT HISTORY: Aunt with breast cancer. TECHNIQUE: Digital bilateral breast nishant (3D mammographic acquisition) in the CC and MLO projections. 2-D mediolateral oblique (MLO) and craniocaudad (CC) views of both breasts were obtained. CAD: Full Field Digital Mammography with Computer Added Detection was performed. COMPARISON: Comparison is made with prior outside examination dated 08/25/2020. FINDINGS: Breast Composition: The breasts are heterogeneously dense, which may obscure small masses. There are no dominant masses or suspicious calcifications. Stable small benign-appearing bilateral axillary lymph nodes. No other significant abnormalities are identified. There has been no significant change since the prior study. BI/SCRN MAMM (CAD)W/NISHANT BILAT IMPRESSION: Stable bilateral screening mammogram. Yearly follow-up mammogram recommended. (A) ASSESSMENT CATEGORY: BIRADS Category 2: Benign. A letter regarding these results will be sent to the patient by the facility within 30 days. Approximately 10% of breast cancers are not detected by mammography. A normal mammogram should not delay biopsy of a clinically suspicious abnormality. [id number] Electronically Signed: Paulino Broderick MD at 14:19 EDT ,
== END | disposition home or self-care (01) ==
LOC: OPBI 12:40
PROVIDERS: PCP Internal Medicine; Visit Provider Internal Medicine
DX: Z12.31 Encounter for screening mammogram for malignant neoplasm of breast (principal)
CPT/HCPCS: 77063; 77067

== ENCOUNTER → 2022-08-11 | Outpatient (CLI) | payer MEDICARE, MEDICAID, SELFPAY ==
[2022-08-11 10:31] LABS: Hematocrit 45.5 % (37-47); Hemoglobin 14.2 g/dL (12.0-15.0); Mean Corp Hgb Conc 31.2 g/dL (32-36); Mean Corpuscular Hgb 28.5 pg (27.0-32.0); Mean Corpuscular Volume 91.4 fL (81-99); Mean Platelet Vol. 10.8 fl (6.2-12.0); Platelet Count 289 K/mm3 (150-450); RBC Distribution Width CV 13.4 % (11.6-14.6); RBC Distribution Width SD 45.2 fl (35.1-43.9); Red Blood Count 4.98 M/mm3 (4.2-5.4); White Blood Count 5.1 K/mm3 (4.4-11.0)
[2022-08-11 11:05] LABS: ALB/GLOB Ratio 0.9 RATIO (0.9-2.4); AST(SGOT) 19 U/L (15-37); Alanine Aminotransfer ALT/SGPT 26 U/L (13-56); Albumin, Serum 3.7 g/dL (3.2-5.0); Alkaline Phosphatase 103 U/L (45-117); Anion Gap 6 (5-15); BUN 16 mg/dL (7-18); BUN/Creat Ratio 21.1 RATIO (10-20); Calcium,Total 10.1 mg/dL (8.5-10.1); Chloride 102 mmol/L (98-107); Creatinine, Serum 0.76 mg/dL (0.55-1.02); EST Glomerular Filtration Rate 80 mL/min (>60); Est Glom Filt Rate - Afr Amer 97 mL/min (>60); Globulin 3.9 g/dL (2.2-4.2); Glucose 95 mg/dL (74-106); Potassium 3.9 mmol/L (3.5-5.1); Protein, Total 7.6 g/dL (6.4-8.2); Sodium Level 140 mmol/L (136-145)
[2022-08-16 14:30] LABS: Trileptal-Oxcarbazepine < 1 ug/mL (10-35)
== END | disposition home or self-care (01) ==
LOC: MTLAB 08:28
PROVIDERS: PCP Internal Medicine; Referring Provider Psychiatry & Neurology Neurology; Visit Provider Psychiatry & Neurology Neurology
DX: M79.2 Neuralgia and neuritis, unspecified (principal); Z86.69 Personal history of other diseases of the nervous system and sense organs
CPT/HCPCS: 36415; 80053; 82542; 85027

== ENCOUNTER → 2022-09-12 | Outpatient (CLI) | payer MEDICARE, MEDICAID, SELFPAY ==
[2022-09-12 15:54] LABS: Bacteria 0 SEEN /hpf (None Seen); Mucous, Urine 0 SEEN /hpf (<or=2+); Red Blood Cells-Urine 0 SEEN /hpf (0-5); Squamous Epithelial Cells - UA 0 SEEN /hpf (5-10); White Blood Cells 0 SEEN /hpf (0-5)
[2022-09-12 16:13] LABS: Glucose, Dipstick Normal (Normal); Ketone-Dipstick Negative (Negative); Leukocyte Esterase-Dipstick Negative /ul (Negative); Nitrite-Dipstick Negative (Negative); Occult Blood-Urine Negative /ul (Negative); Protein-Dipstick Negative (Negative); Urine Bilirubin Dipstick Negative (Negative); Urine Urobilinogen Normal (Normal)
[2022-09-12 16:17] LABS: Color, Urine Yellow (Yellow); Urine Clarity Clear (Clear)
== END | disposition home or self-care (01) ==
LOC: LABSPEC 15:48
PROVIDERS: PCP Internal Medicine; Referring Provider Physician Assistant; Visit Provider Physician Assistant
DX: N39.0 Urinary tract infection, site not specified (principal)
CPT/HCPCS: 81001; 87086; 87088

== ENCOUNTER → 2022-11-04 | Outpatient (CLI) | payer MEDICARE, MEDICAID, SELFPAY ==
[2022-11-04 15:26] LABS: Absolute Lymphocyte Count 1.75 X10^3/uL (0.83-4.51); Absolute Neutrophil Count 2.8 X10^3/uL (2.0-7.7); Basophil# 0.03 X10^3/uL; Basophil% 0.6 % (0-1); Eosinophil# 0.12 X10^3/uL; Eosinophils% 2.2 % (0-5); Hematocrit 44.4 % (37-47); Lymphocyte # 1.75 X10^3/ul (0.83-4.51); Lymphocyte % 32.6 % (19-41); Mean Corp Hgb Conc 31.5 g/dL (32-36); Mean Corpuscular Hgb 28.7 pg (27.0-32.0); Mean Platelet Vol. 11.6 fl (6.2-12.0); Monocyte# 0.67 X10^3/uL; Monocyte% 12.5 % (0-10); NRBC Flagged by Analyzer 0 % (0-5); Neutrophil # 2.77 X10^3/uL (2.7-7.7); Neutrophil % 51.7 % (47-70); Platelet Count 266 K/mm3 (150-450); RBC Distribution Width CV 13.7 % (11.6-14.6); RBC Distribution Width SD 46.2 fl (35.1-43.9); Red Blood Count 4.88 M/mm3 (4.2-5.4); White Blood Count 5.4 K/mm3 (4.4-11.0)
[2022-11-04 15:39] LABS: Vitamin B12 1793 pg/mL (211-911); Vitamin D,25 Hydroxy 47.1 ng/mL
[2022-11-04 16:05] LABS: ALB/GLOB Ratio 0.9 RATIO (0.9-2.4); AST(SGOT) 21 U/L (15-37); Alanine Aminotransfer ALT/SGPT 24 U/L (13-56); Albumin, Serum 3.5 g/dL (3.2-5.0); Alkaline Phosphatase 93 U/L (45-117); Anion Gap 6 (5-15); BUN 20 mg/dL (7-18); BUN/Creat Ratio 30.5 RATIO (10-20); Calcium,Total 9.7 mg/dL (8.5-10.1); Chloride 106 mmol/L (98-107); Cholesterol 239 mg/dL (200); Creatinine, Serum 0.66 mg/dL (0.55-1.02); EST Glomerular Filtration Rate 95 mL/min (>60); Est Glom Filt Rate - Afr Amer 115 mL/min (>60); Free T3 2.7 pg/mL (2.18-3.98); Globulin 3.9 g/dL (2.2-4.2); Glucose 102 mg/dL (74-106); High Density Lipoprotein 65 mg/dL; Magnesium 2.2 mg/dL (1.6-2.6); Potassium 3.7 mmol/L (3.5-5.1); Protein, Total 7.4 g/dL (6.4-8.2); Sodium Level 140 mmol/L (136-145); T4 Free Direct 0.97 ng/dL (0.76-1.46); Thyroid Stim Hormone (TSH) 0.87 uIU/mL (0.358-3.74); Triglycerides 196 mg/dL; Very Low Density Lipoprotein 39 mg/dL (5-40)
== END | disposition home or self-care (01) ==
LOC: MTLAB 12:52
PROVIDERS: PCP Internal Medicine; Referring Provider Internal Medicine; Visit Provider Internal Medicine
DX: G61.0 Guillain-Barre syndrome (principal); G61.81 Chronic inflammatory demyelinating polyneuritis; Z86.69 Personal history of other diseases of the nervous system and sense organs; E78.2 Mixed hyperlipidemia; I10 Essential (primary) hypertension; E53.8 Deficiency of other specified B group vitamins; E55.9 Vitamin D deficiency, unspecified
CPT/HCPCS: 36415; 80053; 80061; 82306; 82607; 83735; 84439; 84443; 84481; 85025

== ENCOUNTER → 2022-11-07 | Outpatient (CLI) | payer MEDICARE, MEDICAID, SELFPAY ==
--- NOTE | 2022-11-07 13:53 | CT_ITS ---
STUDY: CTA CHEST REASON FOR EXAM: Female, 67 years old. Thoracic aortic aneurysm follow-up. TECHNIQUE: CT angiogram of chest was performed with the intravenous administration of 100 ml Isovue-370. Post-processing of the angiographic images was performed, with MIP reconstructions. Individualized dose optimization techniques were used for this CT. COMPARISON: CTA chest from 11/09/2021 FINDINGS: PULMONARY ARTERIES: No pulmonary arterial filling defects identified. AORTA AND VISUALIZED GREAT VESSELS: Mildly ectatic ascending aorta is stable, measuring up to 3.8 cm maximum transverse diameter. Mild atherosclerotic plaque with no dissection. Great vessels are patent. HEART AND PERICARDIUM: Heart size within normal limits. Stable trace pericardial effusion. MEDIASTINUM AND JAXSON: No mediastinal or hilar adenopathy. Esophagus is unremarkable. LUNGS, PLEURA AND LARGE AIRWAYS: No pulmonary edema, mass, consolidation or suspicious opacity. Minimal atelectatic changes versus scarring again noted within the lingular segment of left upper lobe. Stable mild linear scarring adjacent anterior left lower lobe. No pleural effusion or thickening. No pneumothorax. BONES: Intact with no suspicious osseous lesion. Multilevel endplate spondylosis again noted. CHEST WALL: No chest wall mass or acute findings. VISUALIZED ABDOMEN: No acute findings. Previous cholecystectomy. Stable simple appearing 2.6 cm right renal cyst requiring no additional follow-up at this time. CT/CTA Chest W/WO Contrast IMPRESSION: Stable exam with ectatic ascending aorta measuring up to 3.8 cm diameter. No acute cardiopulmonary disease or other acute abnormality. Electronically Signed: Martin Griffith MD at 5:09 EDT ,
[2022-11-07 14:26] LABS: CREATININE FINGERSTICK < 0.9 mg/dL (0.55-1.02); EGFR FINGERSTICK > 60.0000 mL/min (>60)
== END | disposition home or self-care (01) ==
LOC: CT 13:52
PROVIDERS: PCP Internal Medicine; Referring Provider Physician Assistant Medical; Visit Provider Physician Assistant Medical
DX: I71.20 Thoracic aortic aneurysm, without rupture, unspecified (principal)
CPT/HCPCS: 71275; Q9967

== ENCOUNTER 2022-12-21 14:49 | Emergency (ER) | payer MEDICARE, MEDICAID, SELFPAY ==
[2022-12-21 14:50] VITALS: BP 114/83; PULSE 95; RESP 18; TEMP 35.6; O2SAT 95; BMI 31.0
--- NOTE | 2022-12-21 15:09 | EX.ED.DYSGE1 ---
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 Kidney stone Mixed hyperlipidemia DRAKE (obstructive sleep apnea) Osteoarthritis Raynauds disease Rheumatoid arthritis Sjogren's disease Vaginal pruritus Home Medications aspirin 81 mg chewable tablet 81 mg PO DAILY 02/02/21 [History Last Taken Unknown] magnesium 250 mg tablet 250 mg PO DAILY 02/02/21 [History Last Taken Unknown] timolol maleate 0.5 % eye drops (Timoptic) 1 drp EACH EYE DAILY 02/02/21 [History Last Taken Unknown] turmeric 400 mg capsule mg PO DAILY 02/02/21 [History Last Taken Unknown] cholecalciferol (vitamin D3) 10 mcg (400 unit) chewable tablet 10 mcg PO DAILY 06/30/21 [History Last Taken Unknown] vitamin E 200 unit capsule 200 unit PO DAILY 06/30/21 [History Last Taken Unknown] ascorbic acid (vitamin C) 500 mg capsule mg PO 09/09/21 [History Last Taken Unknown] biotin 1 mg tablet 1 mg PO DAILY PRN supplement 09/09/21 [History Last Taken Unknown] glucosamine sulfate 500 mg tablet (Glucosamine) 500 mg PO DAILY 09/09/21 [History Last Taken Unknown] potassium gluconate 500 mg (83 mg) tablet 500 mg PO DAILY 09/09/21 [History Last Taken Unknown] lactobacillus combination no.9 4 billion cell capsule (Adult 50 Plus Probiotic) 4,000 mmu cells PO DAILY 10/26/21 [History Last Taken Unknown] lumingen PO 1XD 09/29/22 [History Last Taken Unknown] zinc PO 09/29/22 [History Last Taken Unknown] alpha lipoic acid 600 mg capsule 600 mg PO DAILY 10/25/22 [History Last Taken Unknown] amlodipine 10 mg tablet 10 mg PO DAILY #90 tabs 10/31/22 [Rx Last Taken Unknown] lisinopril 10 mg-hydrochlorothiazide 12.5 mg tablet 1 tab PO DAILY #30 tabs 10/31/22 [Rx Last Taken Unknown] acetaminophen 325 mg capsule (Tylenol) 650 mg PO .COMPLEX Pain 11/10/22 [History Last Taken Unknown] acyclovir 400 mg tablet 400 mg PO TID PRN 11/10/22 [History Last Taken Unknown] cranberry extract 250 mg capsule 250 mg PO BID PRN 11/10/22 [History Last Taken Unknown] florigen PO 11/10/22 [History Last Taken Unknown] muxinex PO 11/10/22 [History Last Taken Unknown] acyclovir 400 mg tablet 400 mg PO TID 5 days #15 tabs 11/21/22 [Rx Last Taken Unknown] fluconazole 100 mg tablet 100 mg PO DAILY 3 days #3 tabs 11/21/22 [Rx Last Taken Unknown] metronidazole 500 mg tablet 500 mg PO TID #15 tabs 12/12/22 [Rx Last Taken Unknown] Allergy/AdvReac Type Severity Reaction Status Date / Time latanoprost Allergy Unknown Other Verified 12/21/22 14:53 levofloxacin [From Levaquin] Allergy Hives Verified 12/21/22 14:53 Penicillins Allergy Rash Verified 12/21/22 14:53 prednisone Allergy Rash Verified 12/21/22 14:53 hydroxyzine AdvReac Intermediate Other Verified 12/21/22 14:53 acetaminophen [From Percocet] AdvReac PT UNSURE Verified 12/21/22 14:53 OF REACTION bee pollen AdvReac PT UNSURE Verified 12/21/22 14:53 OF REACTION vazquez pepper [green pepper] AdvReac PT UNSURE Verified 12/21/22 14:53 OF REACTION cefaclor [From Ceclor] AdvReac Swelling Verified 12/21/22 14:53 ciprofloxacin AdvReac PT UNSURE Verified 12/21/22 14:53 OF REACTION clindamycin AdvReac Diarrhea Verified 12/21/22 14:53 codeine AdvReac PT UNSURE Verified 12/21/22 14:53 OF REACTION fluoxetine [From Prozac] AdvReac PT UNSURE Verified 12/21/22 14:53 OF REACTION house dust AdvReac PT UNSURE Verified 12/21/22 14:53 OF REACTION immune globulin,alpha (IgA) AdvReac PT UNSURE Verified 12/21/22 14:53 OF REACTION naproxen AdvReac Upset Verified 12/21/22 14:53 Stomach oxycodone [From Percocet] AdvReac PT UNSURE Verified 12/21/22 14:53 OF REACTION Sulfa (Sulfonamide AdvReac Rash Verified 12/21/22 14:53 Antibiotics) Family History Mother CVA (cerebral vascular accident) Father Heart disease Other Hypertension Surgical History History of eye surgery History of hysterectomy Hx of cholecystectomy Social History Smoking Status: Former smoker second hand exposure: No alcohol intake: current alcohol intake frequency: holidays/special occasions only details: occasionally substance use type: does not use seatbelt use: always EXAM Physical Exam Const Vital Signs: 12/21/22 14:50 12/21/22 17:38 12/21/22 18:01 Temperature 96.0 F L Temperature Source Temporal Pulse Rate 95 81 88 Respiratory Rate 18 14 16 Blood Pressure 114/83 H 155/101 H 155/78 H Blood Pressure Mean 93 119 Pulse Ox 95 96 Oxygen Delivery Method Room Air Room Air MDM MDM MDM Narrative Medical decision making narrative: HISTORY OF PRESENT ILLNESS: 67-year-old female here with left groin pain, left leg pain for 2 weeks. No inciting event noted. States the pain is worse with flexion extension of the hip. Worse with sitting down. Denies any back pain. Denies any obvious injury to the hip. Denies any urinary complaints. Denies any focal neurologic deficits. Denies any paresthesias, denies any urinary retention, other signs of this autonomic. She denies shortness of breath. No history of recent infection or GI infection. Patient denies any saddle anesthesia, urinary tension, bowel or bladder incontinence, fever or IV drug use, no recent spinal manipulation or surgery, no recent urinary catheterization. REVIEW OF SYSTEMS: Pertinent positives: Left groin pain Pertinent negatives: Numbness, tingling, urinary complaints, abdominal pain, vomiting, constipation PHYSICAL EXAM: Nursing triage notes reviewed, Vital signs reviewed Constitutional: please see mdm HENT: MMM Eyes: Pupils equal round and reactive to light, Extraocular muscles intact Neck: No stridor, no JVD, full neck ROM Lungs: Clear to auscultation, No wheezing or rales. No increased work of breathing, no conversational dyspnea, no accessory muscle use, no nasal flaring. No respiratory distress noted Heart: Regular rate and rhythm, No murmurs, No rubs and No gallops, 2+ distal pulses (radial, femoral, posterior tibial) in all extremities Abdomen: Soft, there is no tenderness, rigidity, rebound or guarding, no obvious peritoneal signs, no palpable pulsatile abdominal masses, no auscultated abdominal bruit, no obvious inguinal hernia : No CVAT, normal-appearing external genitalia Extremities: No edema, TTP and pain with flexion extension internal/external rotation of the left hip. Limited hip flexion secondary to pain. There is no flaccid paralysis. Neuro: Intact sensation L1-S1 dermatomal distributions. Intact 5/5 strength in hip flexion (T12-L3). Knee extension (L2-L4). Ankle dorsiflexion (L4-L5). Ankle plantar flexion (S1). Great toe extension (L5). 2+ patellar and Achilles DTRs. Skin: No rash or lesions noted MEDICAL DECISION MAKING: Chief Complaint: Left hip, left groin pain External records reviewed: No recent advanced imaging of the groin or left leg, Last ER visit in 2020. Seen on outpatient basis on 12/12/2022 for left inguinal pain. At that time she was prescribed Valtrex for HSV 1 as well as metronidazole for concern for bacterial vaginosis. Factors affecting care: Left groin pain, anxiety, HSV 1, GBS, Sjogren's syndrome, mixed connective tissue disease, asthma Social determinants of health: Altered History obtained from others: The patient's for Consults: none ALL IMAGES (IF OBTAINED) HAVE BEEN PERSONALLY REVIEWED AND INTERPRETED BY MYSELF. Urinalysis shows no evidence of urinary inflammation suggestive of UTI MDM Narrative: 67-year-old female here with left groin pain. Exam most consistent with likely musculoskeletal etiology. I considered the following differential diagnosis: Septic arthritis, fracture dislocation, osteoarthritis, inflammatory condition of the joint, UTI, bowel obstruction, diverticulitis, hernia, Guillain-[place]? syndrome. Patient's NIH was 0. She had no focal weakness, she had no paresthesias. She has full sensation. DTRs are present symmetric. her symptoms are not ascending. They started in the left hip. She is got point tenderness over left groin rather than loss of sensation. He is not having any shortness of breath. Very low suspicion for acute demyelinating syndrome at this time there is no clear life-limiting etiology in terms of polyneuropathy at this time. I did offer the patient a lumbar puncture at this time to further elucidate the patient does have any evidence of albumino-cytologic dissociation or other signs of demyelinating disease. Patient refused LP. She stated I thought only a neurologist can do an LP. I told the patient we do LPs regularly for different disease etiologies. She was alert and oriented x3 and had capacity to make all medical decisions and chose to forego LP at this time. She then requested to have a stat MRI. I told the patient I do not believe an MRI was indicated at this time. Patient abdominal exam is benign there is no evidence of hernia there is no tenderness to suggest perforation or obstruction there are no peritoneal signs. Obtained x-ray to rule out any bony abnormalities x-ray showed evidence of osteoarthritis however there are no acute fractures or dislocations. I suspect patient having muscle skeletal etiology. Did give Decadron here for anti-inflammatory effect as well as Toradol. Patient will be discharged with close follow with her neurologist for outpatient lumbar puncture. The patient and/or family, caregivers express understanding. The patient and/or family, caregivers agrees with the plan. Total critical care time today provided was at least 0 minutes. This excludes separately billable procedures. Critical care time (if documented) is secondary to the patient having high probability of clinically significant/life threatening deterioration in the patient's condition which required my urgent intervention. Shared decision making: I will have a discussion with the patient and or visitors regarding risk/benefits of further testing or admission. They will be made aware of of the risk/benefits inherent in this decision they will be given the opportunity to voice understanding. Lab Data Attestation: I reviewed the patient's lab results. Lab results narrative: Urinalysis shows no evidence of urinary inflammation suggestive of UTI. There is evidence of leuk esterase will send for culture per patient request. Labs: Laboratory Results - last 24 hr 12/21/22 16:07 Urine Color Yellow Urine Clarity Sl. Cloudy Urine pH 5.0 Ur Specific [place] 1.020 Urine Protein 15 H Urine Glucose (UA) Normal Urine Ketones 15 H Urine Occult Blood Negative Urine Nitrite Negative Urine Bilirubin Negative Urine Urobilinogen 1 H Ur Leukocyte Esterase 25 H Urine RBC 0 SEEN Urine WBC 0-5 SEEN Ur Squamous Epith Cells 0-5 SEEN Amorphous Sediment 1+ URATE Urine Bacteria 0 SEEN Urine Mucus 0 SEEN Radiography Diagnostic Testing: Clinical Impression(s) from Imaging Studies Hip/Pelvis X-Ray 12/21/22 16:28 IMPRESSION: No acute osseous abnormalities. There are degenerative changes with narrowing of the hip joint spaces. Electronically Signed: Jeff Guevara MD at 17:00 EDT Reading Location ID and State: [facility] / [place] Tel , Service support , I personally viewed the patient's imaging. There is no obvious evidence of fracture dislocation by my read Discharge Plan Triage Chief Complaint: Lower Extremity Injury ED Provider: Melvin Mills Dx/Rx/DC Orders Clinical Impression: History of Guillain-[place] syndrome, Left groin pain Instructions: ED Hip Strain Prescriptions: No Action cholecalciferol (vitamin D3) 10 mcg (400 unit) tablet,chewable 10 mcg PO DAILY vitamin E 200 unit capsule 200 unit PO DAILY potassium gluconate 500 mg (83 mg) tablet 500 mg PO DAILY glucosamine sulfate [Glucosamine] 500 mg tablet 500 mg PO DAILY Rx Instructions: administer with a meal ascorbic acid (vitamin C) 500 mg capsule PO Adult 50 Plus Probiotic 4 billion cell capsule 4,000 mmu cells PO DAILY Rx Instructions: administer with a meal alpha lipoic acid 600 mg capsule 600 mg PO DAILY cranberry extract 250 mg capsule 250 mg PO BID PRN Rx Instructions: administer with meals zinc PO Rx Instructions: 50 md qd lumingen PO 1XD acyclovir 400 mg tablet 400 mg PO TID PRN muxinex PO Rx Instructions: daily florigen PO metronidazole 500 mg tablet 500 mg PO TID Qty: 15 0RF aspirin 81 mg Tablet,Chewable 81 mg PO DAILY magnesium 250 mg Tablet 250 mg PO DAILY timolol maleate [Timoptic] 0.5 % Drops 1 drp EACH EYE DAILY turmeric 400 mg Capsule PO DAILY biotin 1 mg tablet 1 mg PO DAILY PRN (Reason: supplement) acetaminophen [Tylenol] 325 mg capsule 650 mg PO .COMPLEX Rx Instructions: 650 mg orally bid; amlodipine 10 mg tablet 10 mg PO DAILY Qty: 90 1RF lisinopril-hydrochlorothiazide 10-12.5 mg tablet 1 tab PO DAILY Qty: 30 5RF acyclovir 400 mg tablet 400 mg PO TID 5 Days Qty: 15 3RF fluconazole 100 mg tablet 100 mg PO DAILY 3 Days Qty: 3 1RF Primary Care Provider: Nayeli Jose Referrals: Nayeli Jose MD [Primary Care Provider] - Activity Restrictions/Additional Instructions: Thank you for trusting us with your care today! Please take Tylenol (2 pills, 650 mg), ibuprofen (2 pills, 400 mg) every 6 hours as needed for pain and fever control. Please return to the emergency department if your symptoms change or worsen. Specifically if you develop ascending bilateral weakness, loss of sensation, any signs of palpitations, urinary retention, constipation, difficulty breathing. Please follow with your neurologist for further outpatient evaluation and management. Disposition Disposition: Home, Self Care Discharge Date/Time: 12/21/22 18:17
[2022-12-21] MEDS: Ketorolac 10 MG Tablet PO (16:03)
[2022-12-21] MEDS: dexAMETHasone 4 MG Tablet 6 MG PO (16:04)
[2022-12-21 16:16] LABS: Bacteria 0 SEEN /hpf (None Seen); Mucous, Urine 0 SEEN /hpf (<or=2+); Red Blood Cells-Urine 0 SEEN /hpf (0-5)
[2022-12-21 16:23] LABS: Color, Urine Yellow (Yellow); Glucose, Dipstick Normal (Normal); Ketone-Dipstick 15 mg/dl (Negative); Leukocyte Esterase-Dipstick 25 /ul (Negative); Nitrite-Dipstick Negative (Negative); Occult Blood-Urine Negative /ul (Negative); Protein-Dipstick 15 mg/dl (Negative); Urine Bilirubin Dipstick Negative (Negative); Urine Clarity Sl. Cloudy (Clear); Urine Urobilinogen 1 mg/dl (Normal)
--- NOTE | 2022-12-21 16:28 | RAD_ITS ---
EXAM: XR LEFT HIP WITH PELVIS WHEN PERFORMED, 2 OR 3 VIEWS CLINICAL INDICATION: left hip pain TECHNIQUE: Two or three views of the left hip with pelvis when performed. COMPARISON: No relevant prior studies available. FINDINGS: BONES/JOINTS: There is narrowing in the hip joint spaces bilaterally. No displaced fracture. No destructive or sclerotic lesions. Note that overlapping bowel shadows may however obscure fine detail. Sacroiliac joint is unremarkable. No widening of the pubic symphysis. SOFT TISSUES: Unremarkable. No soft tissue swelling or gas. RAD/HIP, UNI W/ Pelvis 2-3 Views IMPRESSION: No acute osseous abnormalities. There are degenerative changes with narrowing of the hip joint spaces. Electronically Signed: Jeff Guevara MD at 17:00 EDT ,
[2022-12-21 16:44] LABS: Squamous Epithelial Cells - UA 0-5 SEEN /hpf (5-10); White Blood Cells 0-5 SEEN /hpf (0-5)
[2022-12-21 16:45] LABS: Amorphous Sediment 1+ URATE
[2022-12-21 17:38] VITALS: BP 155/101; PULSE 81; RESP 14; O2SAT 96
[2022-12-21 18:01] VITALS: BP 155/78; PULSE 88; RESP 16
== END 2022-12-21 18:17 | disposition home or self-care (01) ==
PROVIDERS: Emergency Provider Emergency Medicine; PCP Internal Medicine; Visit Provider Emergency Medicine
DX: R10.32 Left lower quadrant pain (principal); G61.0 Guillain-Barre syndrome; M35.00 Sjogren syndrome, unspecified; M16.12 Unilateral primary osteoarthritis, left hip; Z87.891 Personal history of nicotine dependence; E78.2 Mixed hyperlipidemia; F41.9 Anxiety disorder, unspecified; J45.909 Unspecified asthma, uncomplicated; I10 Essential (primary) hypertension
CPT/HCPCS: 73502; 81001; 99282

== ENCOUNTER → 2022-12-27 | Outpatient (CLI) | payer MEDICARE, MEDICAID, SELFPAY ==
--- NOTE | 2022-12-27 14:48 | CT_ITS ---
STUDY: CT PELVIS WITHOUT CONTRAST REASON FOR EXAM: Female, 67 years old. 3 week history of lower abdominal pain. RADIATION DOSAGE (If Supplied By Facility): CTDIvol = ( 28.21 ) mGy, DLP = ( 998.65 ) mGycm TECHNIQUE: Transaxial imaging of the pelvis was performed with oral contrast, and without intravenous administration of contrast material. Individualized dose optimization techniques were used for this CT. COMPARISON: Comparison is made with prior study November 24, 2021. FINDINGS: Normal urinary bladder. There is a 4.3 cm x 3.7 cm cyst in the left ovary. This also evidence of a 2.3 cm x 2 cm cyst in the right ovary. These are essentially unchanged. Limited visualization of small bowel loops shows evidence of mildly thickened small bowel loops in the ileum. Clinical correlation is recommended. There are multiple colonic diverticula of the sigmoid colon consistent with chronic diverticulosis. There is no pelvic fluid. There is no pelvic mass lesion or lymphadenopathy. The patient is status post hysterectomy. There is diffuse atherosclerotic calcification of the pelvic arteries. Normal abdominal wall. There are diffuse degenerative changes of the visualized lumbar spine. Grade 1 anterior listhesis of L4 on L5. CT/Pelvis without IV Contrast IMPRESSION: Stable examination. Thickened small bowel loops of the ileum. A repeat CT scan abdomen and pelvis is recommended. Electronically Signed: Paulino Broderick MD at 15:47 EDT ,
== END | disposition home or self-care (01) ==
LOC: CT 14:46
PROVIDERS: PCP Internal Medicine; Referring Provider Surgery; Visit Provider Surgery
DX: R10.30 Lower abdominal pain, unspecified (principal)
CPT/HCPCS: 72192

== ENCOUNTER → 2023-04-12 | Outpatient (CLI) | payer MEDICARE, MEDICAID, SELFPAY ==
[2023-04-12 14:15] LABS: Bacteria 0 SEEN /hpf (None Seen); Mucous, Urine 0 SEEN /hpf (<or=2+)
[2023-04-12 16:33] LABS: Color, Urine Yellow (Yellow); Glucose, Dipstick Normal (Normal); Ketone-Dipstick 5 mg/dl (Negative); Leukocyte Esterase-Dipstick 25 /ul (Negative); Nitrite-Dipstick Negative (Negative); Occult Blood-Urine Negative /ul (Negative); Protein-Dipstick Negative (Negative); Specific Gravity, Urine 1.025 (1.002-1.030); Urine Clarity Clear (Clear); Urine Urobilinogen Normal (Normal)
[2023-04-12 16:34] LABS: Urine Bilirubin Dipstick 1 mg/dL (Negative)
[2023-04-12 16:49] LABS: Luteinizing Hormone 33.2 mIU/mL; Thyroid Stim Hormone (TSH) 1.18 uIU/mL (0.358-3.74)
[2023-04-12 16:50] LABS: Red Blood Cells-Urine 0-5 SEEN /hpf (0-5); Squamous Epithelial Cells - UA 5-10 SEEN /hpf (5-10); White Blood Cells 0-5 SEEN /hpf (0-5)
== END | disposition home or self-care (01) ==
LOC: MTLAB 14:13
PROVIDERS: PCP Internal Medicine; Referring Provider Internal Medicine; Visit Provider Internal Medicine
DX: R23.2 Flushing (principal); N39.0 Urinary tract infection, site not specified; E78.2 Mixed hyperlipidemia
CPT/HCPCS: 36415; 81001; 83001; 83002; 84443; 87086

== ENCOUNTER → 2023-04-14 | Outpatient (CLI) | payer MEDICARE, MEDICAID, SELFPAY ==
--- NOTE | 2023-04-14 12:47 | BI_ITS ---
MAMMOGRAPHY - BILATERAL SCREENING REASON FOR EXAM: Female, 67 years old. Routine annual screening examination. PERTINENT HISTORY: Aunt with breast cancer. TECHNIQUE: Digital bilateral breast nishant (3D mammographic acquisition) in the CC and MLO projections. 2-D mediolateral oblique (MLO) and craniocaudad (CC) views of both breasts were obtained. CAD: Full Field Digital Mammography with Computer Added Detection was performed. COMPARISON: Comparison is made with prior study March 15, 2022. FINDINGS: Breast Composition: The breasts are heterogeneously dense, which may obscure small masses. There are no dominant masses or suspicious calcifications. Stable small benign-appearing bilateral axillary lymph nodes. No other significant abnormalities are identified. There has been no significant change since the prior study. BI/SCRN MAMM (CAD)W/NISHANT BILAT IMPRESSION: Stable bilateral screening mammogram. Yearly follow-up mammogram recommended. (A) ASSESSMENT CATEGORY: BIRADS Category 2: Benign. A letter regarding these results will be sent to the patient by the facility within 30 days. Approximately 10% of breast cancers are not detected by mammography. A normal mammogram should not delay biopsy of a clinically suspicious abnormality. [id number] Electronically Signed: Paulino Broderick MD at 14:11 EDT ,
== END | disposition home or self-care (01) ==
LOC: OPBI 12:45
PROVIDERS: PCP Internal Medicine; Referring Provider Internal Medicine; Visit Provider Internal Medicine
DX: Z12.31 Encounter for screening mammogram for malignant neoplasm of breast (principal)
CPT/HCPCS: 77063; 77067

== ENCOUNTER 2023-05-29 14:30 | Outpatient (RCR) | payer MEDICARE, MEDICAID, SELFPAY ==
--- NOTE | 2023-04-03 14:45 | HP.PTEVAL_ITS ---
Patient's Visit Information Visit Information Visit Information: SALAZAR ARIAS is a 67 year old F referred to Physical Therapy by Dr. John De Jesus MD with a diagnosis of L groin pain and hip pain. Date of Evaluation: 04/03/23 Physical Therapist: EDER Chino Visit Plan Frequency: 2x /Week Duration: 2 Months Plan: 2X/ week for 8 weeks for neutral spine core stability, flexibility and ROM of L hip, L hip strengthening, gait training with HEP. Pt has no interest in going up and down the stairs. Subjective Subjective: Pt needs B hip, knee replacements and spine surgery and no one will do the surgery. 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 She needs to maintain right now. She is in pain 09/01. She is now taking Alieve and a gummy to sleep and this is new regimen and sleeping now at night. She was on steroids for 2 years and that ruined her joints and bones. She uses a rollator all the time. She has gained weight. She can not walk without the walker cause it does more damage to her joints and spine. She is able to walk around her kitchen etc with UE support. She has a grab bar at the shower. She lives alone. She drives. She has feeling in her fingers and toes (thorns through her fingers). She is hypersensitive to things like the shower and at times has to take her clothes inside out with the softer side to touch her skin. If she holds her back she is able to walk better. She got an injection (Feb 15) into her spine that helped her groin pain on the L side. She is feeling better and staying away from Gluten and thinks that that is helping the inflammation. She feels that she can walk through [place] but is exhausted afterwards. She has not tried light weights and has no strength now. She struggles getting out of low chairs and always uses her arms. She does not do stairs...step two pattern. She does have a shower chair and does have to step into the shower and has a bar. She has not fallen. She has been living in [employer] for 2 years now. X- ray of B hips and they were arthritic Pain Fingers and toes: Pain Intensity (Out of 10): 9 R shoulder pain: Pain Intensity (Out of 10): 4 Objective Objective: Gait: She can walk with hyperextension of her R knee and wide SHOBHA without her walker for a few steps. She is able to walk back to the treatment room with her rollator with flexed trunk and decreased stride length. LE MMT: R hip flex 15.8 and L 7.2 (increase groin pain when lifts L leg but able to do it better with abdominal bracing) R knee ext 8.9 and L 9.6 R knee flex 8.1 and L 4.4 Supine R hip abd 4-/5and L 4-/5 no pain Pt has pain with PROM hip abd, IR/ER and flexion to 90 degrees. She has more pain on the L hip flexion with AROM to less than 90 degrees. Patella DTR's 2+/3 B Pt is able to lay on her back in hooklying. She has to have her knees bent or pillows under her legs. She is not able to get to neutral hip extension as she has pain or even with B legs straight out on the table Balance/Special Test Scores Lower Extremity Functional Score: 24 Goals Goal 1:: I HEP Goal Time Frame: 6-8 Weeks Goal 2:: Increase LE strength (at time of the eval: LE MMT: R hip flex 15.8 and L 7.2 (increase groin pain when lifts L leg but able to do it better with abdominal bracing) R knee ext 8.9 and L 9.6 R knee flex 8.1 and L 4.4 Supine R hip abd 4-/5and L 4-/5 no pain) Goal Time Frame: 6-8 Weeks Goal 3:: Be able to walk with more upright posture with her rollator Goal Time Frame: 6-8 Weeks Goal 4:: Be able to lay in supine with legs out straight without L groin pain Goal Time Frame: 6-8 Weeks Rehabilitation Potential Rehabilitation Potential: Good Anticipated Interventions Patient/Client Instruction: Educate patient on: Condition and Plan of Care For the Purpose of:: To decrease pain, To increase ROM, To improve nutrient delivery to tissue, To improve muscle performance and motor function, To improve ability to perform ADL's, To increase tolerance to activity/condition/position, To improve performance and independence with ADL's, To improve gait and locomotor functions, To improve health of tissue, To decrease soft tissue restriction, To increase flexibility/ROM, To improve balance and To improve safety with gait Therapeutic Exercise to Include: Strength training, Balance training, Postural training, Flexibilty training, Gait and locomotor training, Neuromotor development, Active ROM and Dynamic Lumbar Stabilization For the Purpose of:: To decrease pain, To increase ROM, To improve nutrient delivery to tissue, To improve muscle performance and motor function, To improve ability to perform ADL's, To increase tolerance to activity/condition/position, To improve performance and independence with ADL's, To decrease level of supervision to perform tasks, To improve gait and locomotor functions, To improve health of tissue, To decrease soft tissue restriction, To increase flexibility/ROM and To improve safety with gait Functional Training to Include: Gait training For the Purpose of:: To improve gait and locomotor functions Manual Therapy Techniques to Include: Passive ROM For the Purpose of:: To increase flexibility/ROM Text: Thank you for the opportunity to evaluate your patient. For Medicare and Medicare HMO plans, please review the plan of care and approve it. It will need to be FAXED BACK to us at [phone] for Medicare purposes. For Medicare only, by signing this I certify the plan of care. Please let me know if there are questions or concerns regarding this plan of care. Physician Signature: Date:
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
--- NOTE | 2023-05-17 14:02 | HP.PTREVAL ---
Re-Evaluation Intro: Dr. John De Jesus MD, It has been my pleasure to treat SALAZAR ARIAS over the last 10 visits for L groin pain and hip pain. Please see the progress note below for an update on the physical therapy plan of care! Subjective Subjective: Pt reports that she has a pain patch on her knee today and it took 2 days to do her tree and her knee hurts. Her shoulder feels ok now but it hurt last night. Pt is not hurting as much as she was in the begining and doing her exercises at home. Objective Objective/Function: R hip flex 15.8 and L 15.8 R knee ext 12.3 and L 11.8 R knee flex 10.4 and L 11.6 Supine R hip abd 14.8 and L 11.9 Pt was able to get farther into PROM today Plan Plan Plan: ###Added R shoulder strengthening, scapular and postural exercises, AAROM, AROM, PROM to the POC Also pt R knee has been swelling after her post PT sessions... maybe work on strengthening (even light machines in NWB on the R if tolerated) 2X/ week for 8 weeks for neutral spine core stability, flexibility and ROM of L hip, L hip strengthening, gait training with HEP. Pt has no interest in going up and down the stairs. Balance/Gait/Functional tests Balance/Special Test Scores Lower Extremity Functional Score: 28 Quick DASH Score: 50.0000 Goals Goals Goal 1:: I HEP Goal Time Frame: 6-8 Weeks Goal Progress: Goal Met Goal 2:: Increase LE strength (at time of the eval: LE MMT: R hip flex 15.8 and L 7.2 (increase groin pain when lifts L leg but able to do it better with abdominal bracing) R knee ext 8.9 and L 9.6 R knee flex 8.1 and L 4.4 Supine R hip abd 4-/5and L 4-/5 no pain) Goal Time Frame: 6-8 Weeks Goal Progress: Progressing Goal 3:: Be able to walk with more upright posture with her rollator Goal Time Frame: 6-8 Weeks Goal Progress: Progressing Goal 4:: Be able to lay in supine with legs out straight without L groin pain Goal Time Frame: 6-8 Weeks Goal 5:: Increase R shoulder AROM with less pain (at time of the eval: R flexion 130 and L flexion 141 R ABD 92 and L 170 R IR L1 and T6 R ER 45 and L ER 45) Goal Time Frame: 6-8 Weeks Goal 6:: Increase R shoulder strength (at the time of the eval: R shoulder flex 4.6 and L 11 R shoulder ABD 3.9 and 8.1 R shoulder ER 9.4 and L 11 R IR 8.1 and 9.5 R bicep 7.6 and L 9.8) Goal Time Frame: 6-8 Weeks Anticipated Interventions Anticipated Interventions Patient/Client Instruction: Educate patient on: Condition and Plan of Care For the Purpose of:: To decrease pain, To increase ROM, To improve nutrient delivery to tissue, To improve muscle performance and motor function, To improve ability to perform ADL's, To increase tolerance to activity/condition/position, To improve performance and independence with ADL's, To improve gait and locomotor functions, To improve health of tissue, To decrease soft tissue restriction, To increase flexibility/ROM, To improve balance and To improve safety with gait Therapeutic Exercise to Include: Strength training, Balance training, Postural training, Flexibilty training, Gait and locomotor training, Neuromotor development, Active ROM and Dynamic Lumbar Stabilization For the Purpose of:: To decrease pain, To increase ROM, To improve nutrient delivery to tissue, To improve muscle performance and motor function, To improve ability to perform ADL's, To increase tolerance to activity/condition/position, To improve performance and independence with ADL's, To decrease level of supervision to perform tasks, To improve gait and locomotor functions, To improve health of tissue, To decrease soft tissue restriction, To increase flexibility/ROM and To improve safety with gait Functional Training to Include: Gait training For the Purpose of:: To improve gait and locomotor functions Manual Therapy Techniques to Include: Passive ROM For the Purpose of:: To increase flexibility/ROM Re-Evaluation Ending Re-evaluation ending: Please do not hesitate to contact me at [phone] by phone or if you have questions or concerns regarding this new plan of care! Sincerely, EDER Chino
--- NOTE | 2023-08-14 15:18 | HP.PT.NRP ---
Patient Information Patient Information: SALAZAR ARIAS was seen in my office for initial evaluation on 04/03/23. The following Plan of Care was established for this patient: POC Established Initial Frequency: 2x /Week Initial Duration: 2 Months Anticipated Interventions Patient/Client Instruction: Educate patient on: Condition and Plan of Care For the Purpose of:: To decrease pain, To increase ROM, To improve nutrient delivery to tissue, To improve muscle performance and motor function, To improve ability to perform ADL's, To increase tolerance to activity/condition/position, To improve performance and independence with ADL's, To improve gait and locomotor functions, To improve health of tissue, To decrease soft tissue restriction, To increase flexibility/ROM, To improve balance and To improve safety with gait Therapeutic Exercise to Include: Strength training, Balance training, Postural training, Flexibilty training, Gait and locomotor training, Neuromotor development, Active ROM and Dynamic Lumbar Stabilization For the Purpose of:: To decrease pain, To increase ROM, To improve nutrient delivery to tissue, To improve muscle performance and motor function, To improve ability to perform ADL's, To increase tolerance to activity/condition/position, To improve performance and independence with ADL's, To decrease level of supervision to perform tasks, To improve gait and locomotor functions, To improve health of tissue, To decrease soft tissue restriction, To increase flexibility/ROM and To improve safety with gait Functional Training to Include: Gait training For the Purpose of:: To improve gait and locomotor functions Manual Therapy Techniques to Include: Passive ROM For the Purpose of:: To increase flexibility/ROM Last Seen Last Seen: This patient was last seen in our office 05/29/23. Pertinent comments regarding their Physical therapy will appear below: ANDREIA PT At this point I will be discontinuing this patient from physical therapy. I would be happy to see this patient again in the future if found appropriate by the physician. Thank you! Rhea Pugh, MPT Balance/Gait/Functional tests Balance/Special Test Scores Lower Extremity Functional Score: 28 Quick DASH Score: 50.0000
== END 2023-05-29 19:00 | disposition home or self-care (01) ==
LOC: PT 14:30
PROVIDERS: PCP Internal Medicine; Referring Provider Psychiatry & Neurology Neurology; Visit Provider Psychiatry & Neurology Neurology
DX: M25.811 Other specified joint disorders, right shoulder (principal); G61.81 Chronic inflammatory demyelinating polyneuritis
CPT/HCPCS: 97110; 97140; 97162; 97164

== ENCOUNTER → 2023-10-26 | Outpatient (CLI) | payer MEDICARE, MEDICAID, SELFPAY ==
[2023-10-26 12:47] LABS: Absolute Lymphocyte Count 1.87 X10^3/uL (0.83-4.51); Absolute Neutrophil Count 2.2 X10^3/uL (2.0-7.7); Basophil# 0.05 X10^3/uL; Eosinophil# 0.22 X10^3/uL; Eosinophils% 4.4 % (0-5); Hematocrit 45.9 % (37-47); Hemoglobin 14.4 g/dL (12.0-15.0); Lymphocyte # 1.87 X10^3/ul (0.83-4.51); Lymphocyte % 37.6 % (19-41); Mean Corp Hgb Conc 31.4 g/dL (32-36); Mean Corpuscular Hgb 27.9 pg (27.0-32.0); Mean Corpuscular Volume 88.8 fL (81-99); Mean Platelet Vol. 11.3 fl (6.2-12.0); Monocyte# 0.61 X10^3/uL; Monocyte% 12.2 % (0-10); NRBC Flagged by Analyzer 0 % (0-5); Neutrophil # 2.22 X10^3/uL (2.7-7.7); Neutrophil % 44.6 % (47-70); Platelet Count 274 K/mm3 (150-450); RBC Distribution Width CV 13.2 % (11.6-14.6); RBC Distribution Width SD 43.3 fl (35.1-43.9); Red Blood Count 5.17 M/mm3 (4.2-5.4)
[2023-10-26 13:13] LABS: Vitamin B12 452 pg/mL (211-911)
[2023-10-26 13:31] LABS: ALB/GLOB Ratio 1.1 RATIO (0.9-2.4); AST(SGOT) 21 U/L (15-37); Alanine Aminotransfer ALT/SGPT 18 U/L (13-56); Albumin, Serum 3.8 g/dL (3.2-5.0); Alkaline Phosphatase 88 U/L (45-117); Anion Gap 3 (5-15); BUN 19 mg/dL (7-18); BUN/Creat Ratio 21.6 RATIO (10-20); Calcium,Total 9.5 mg/dL (8.5-10.1); Chloride 105 mmol/L (98-107); Creatinine, Serum 0.88 mg/dL (0.55-1.02); EST Glomerular Filtration Rate 68 mL/min (>60); Est Glom Filt Rate - Afr Amer 82 mL/min (>60); Globulin 3.5 g/dL (2.2-4.2); Glucose 91 mg/dL (74-106); Magnesium 2.2 mg/dL (1.6-2.6); Protein, Total 7.3 g/dL (6.4-8.2); Sodium Level 140 mmol/L (136-145); Thyroid Stim Hormone (TSH) 1.25 uIU/mL (0.358-3.74)
== END | disposition home or self-care (01) ==
LOC: MTLAB 10:17
PROVIDERS: PCP Internal Medicine; Referring Provider Internal Medicine; Visit Provider Internal Medicine
DX: E78.2 Mixed hyperlipidemia (principal); G47.33 Obstructive sleep apnea (adult) (pediatric); G61.0 Guillain-Barre syndrome; E55.9 Vitamin D deficiency, unspecified; E53.8 Deficiency of other specified B group vitamins
CPT/HCPCS: 36415; 80053; 82306; 82607; 83735; 84443; 85025

== ENCOUNTER → 2024-02-23 | Outpatient (CLI) | payer MEDICARE, MEDICAID, SELFPAY ==
[2024-02-23 14:55] LABS: Red Blood Cells-Urine 0 SEEN /hpf (0-5)
[2024-02-23 18:08] LABS: Color, Urine Yellow (Yellow); Glucose, Dipstick Normal (Normal); Ketone-Dipstick 5 mg/dl (Negative); Leukocyte Esterase-Dipstick 100 /ul (Negative); Nitrite-Dipstick Negative (Negative); Occult Blood-Urine Negative /ul (Negative); Protein-Dipstick 15 mg/dl (Negative); Urine Clarity Sl. Cloudy (Clear); Urine Urobilinogen 1 mg/dl (Normal)
[2024-02-23 18:09] LABS: Urine Bilirubin Dipstick 1 mg/dL (Negative)
[2024-02-23 18:20] LABS: Squamous Epithelial Cells - UA 0-5 SEEN /hpf (5-10); White Blood Cells 5-10 SEEN /hpf (0-5)
[2024-02-23 18:21] LABS: Bacteria 1+ /hpf (None Seen)
[2024-02-23 18:23] LABS: Mucous, Urine 1+ /hpf (<or=2+)
== END | disposition home or self-care (01) ==
LOC: MTLAB 14:49
PROVIDERS: PCP Internal Medicine; Referring Provider Internal Medicine; Visit Provider Internal Medicine
DX: N39.0 Urinary tract infection, site not specified (principal)
CPT/HCPCS: 81001; 87086

== ENCOUNTER → 2024-04-05 | Outpatient (CLI) | payer MEDICARE, MEDICAID, SELFPAY ==
--- NOTE | 2024-04-05 14:00 | RAD_ITS ---
INDICATION: wheezing EXAMINATION/TECHNIQUE: X-RAY - XR Chest 2 Views COMPARISON: Prior study dated: CT 11/07/2022 FINDINGS: LINES/DEVICES: None. LUNGS: The lungs are well expanded. No consolidation, edema or effusion. No pneumothorax. MEDIASTINUM AND CARDIOVASCULAR STRUCTURES: Cardiac silhouette not enlarged. Central airways and mediastinal contour are unremarkable. BONES AND SOFT TISSUES: No acute abnormality. RAD/Chest PA and Lateral IMPRESSION: No acute pulmonary finding. Electronically Signed: Moi Santana MD at 4:50 EDT ,
== END | disposition home or self-care (01) ==
LOC: RAD 13:54
PROVIDERS: PCP Internal Medicine; Referring Provider Physician Assistant Medical; Visit Provider Physician Assistant Medical
DX: I77.810 Thoracic aortic ectasia (principal); R06.2 Wheezing
CPT/HCPCS: 71046

== ENCOUNTER 2024-04-10 15:30 | Outpatient (RCR) | payer MEDICARE, MEDICAID, SELFPAY ==
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
== END 2024-04-10 19:00 | disposition home or self-care (01) ==
LOC: PT 15:30
PROVIDERS: PCP Internal Medicine; Referring Provider Internal Medicine; Visit Provider Internal Medicine
DX: G61.0 Guillain-Barre syndrome (principal); G61.81 Chronic inflammatory demyelinating polyneuritis
CPT/HCPCS: 97110; 97162

== ENCOUNTER → 2024-05-06 | Outpatient (CLI) | payer MEDICARE, MEDICAID, SELFPAY ==
[2024-05-06 13:07] LABS: Bacteria 0 SEEN /hpf (None Seen); Mucous, Urine 0 SEEN /hpf (<or=2+); Red Blood Cells-Urine 0 SEEN /hpf (0-5); White Blood Cells 0 SEEN /hpf (0-5)
[2024-05-06 15:18] LABS: Color, Urine Yellow (Yellow); Glucose, Dipstick Normal (Normal); Ketone-Dipstick Negative (Negative); Leukocyte Esterase-Dipstick Negative /ul (Negative); Nitrite-Dipstick Positive (Negative); Occult Blood-Urine Negative /ul (Negative); Protein-Dipstick Negative (Negative); Urine Bilirubin Dipstick Negative (Negative); Urine Clarity Clear (Clear); Urine Urobilinogen Normal (Normal)
[2024-05-06 15:37] LABS: Squamous Epithelial Cells - UA 0-5 SEEN /hpf (5-10)
== END | disposition home or self-care (01) ==
PROVIDERS: PCP Internal Medicine; Referring Provider Internal Medicine; Visit Provider Internal Medicine
DX: N39.0 Urinary tract infection, site not specified (principal)
CPT/HCPCS: 81001; 87086; 87088

== ENCOUNTER → 2024-05-10 | Outpatient (CLI) | payer MEDICARE, MEDICAID, SELFPAY ==
--- NOTE | 2024-05-10 12:59 | US_ITS ---
INDICATION: Adnexal cystic mass, seen on MRI outside instituti EXAMINATION: Ultrasound US Pelvis Non-OB Limited (eg bladder) TECHNIQUE: Transabdominal pelvic ultrasound was performed. Grayscale, spectral waveform, and color flow Doppler evaluation of the adnexa. COMPARISON: FINDINGS: UTERUS: Status post hysterectomy. RIGHT OVARY: Nonvisualization. LEFT OVARY: 6.4 x 4.4 x 5.5 cm. 4.9 x 3.2 x 24.2 cm cyst. There is normal arterial inflow and venous outflow present in the left ovary. FREE FLUID: None. US/Pelvic (Non ) IMPRESSION: Left adnexal cyst. Electronically Signed: Luis Antonio Christian DO at 0:01 EST Reading Location ID and State: [facility] / [place] Tel [phone], Service support ,
--- NOTE | 2024-05-10 12:59 | US_ITS ---
STUDY: RENAL ULTRASOUND - COMPLETE REASON FOR EXAM: Female, 69 years old. R renal cyst, seen outside MRI -- Scanned MRI attached to note 02/15/2024 TECHNIQUE: Ultrasound evaluation of the kidneys was performed with real-time and static schmidt-scale imaging. COMPARISON: None. FINDINGS: RIGHT KIDNEY: Normal location of the right kidney, which is normal in size. The right kidney measures 10.1 x 4.9 x 4.2 cm. There is a normal cortex of the right kidney. The renal cortex measures 1.6 cm. There are renal cysts measuring 1.8 and 2.5 cm There are no right renal calculi. There is no right hydronephrosis. DISTAL RIGHT URETER: There is non-visualization of the distal right ureter. There is no demonstrated right ureterovesical junction calculus. There is a visualized right ureteral jet. LEFT KIDNEY: Normal location of the left kidney, which is normal in size. The left kidney measures 10.9 x 5.0 x 4.9 cm. There is a normal cortex of the left kidney. The renal cortex measures 1.6 cm. There is a 1.9 cm cyst There are no left renal calculi. There is no left hydronephrosis. DISTAL LEFT URETER: There is non-visualization of the distal left ureter. There is no demonstrated left ureterovesical junction calculus. There is a visualized left ureteral jet. BLADDER: The distended urinary bladder has a volume of 192ml. ThThere is a normal wall thickness of the distended urinary bladder. ThThere is no demonstrated mass within the urinary bladder.ThThere are no demonstrated bladder calculi. US/Kidney and Bladder IMPRESSION: Normal ultrasound of the kidneys and urinary bladder. Incidental note of simple renal cysts. Electronically Signed: Ricardo Davis MD at 0:00 EST ,
--- NOTE | 2024-05-10 12:59 | BI_ITS ---
MAMMOGRAPHY - BILATERAL SCREENING REASON FOR EXAM: Female, 69 years old. Routine annual screening examination. PERTINENT HISTORY: Aunt with breast cancer. TECHNIQUE: Digital bilateral breast nishant (3D mammographic acquisition) in the CC and MLO projections. 2-D mediolateral oblique (MLO) and craniocaudad (CC) views of both breasts were obtained. CAD: Full Field Digital Mammography with Computer Added Detection was performed. COMPARISON: Comparison is made with prior study April 14, 2023 and March 15, 2022. FINDINGS: Breast Composition: The breasts are heterogeneously dense, which may obscure small masses. There are no dominant masses or suspicious calcifications. Stable bilateral fat containing axillary lymph nodes. No other significant abnormalities are identified. There has been no significant change since the prior study. BI/SCRN MAMM (CAD)W/NISHANT BILAT IMPRESSION: Stable bilateral screening mammogram. Yearly follow-up mammogram recommended. (A) ASSESSMENT CATEGORY: BIRADS Category 2: Benign. A letter regarding these results will be sent to the patient by the facility within 30 days. Approximately 10% of breast cancers are not detected by mammography. A normal mammogram should not delay biopsy of a clinically suspicious abnormality. [id number] Electronically Signed: Paulino Broderick MD at 14:54 EST ,
== END | disposition home or self-care (01) ==
LOC: US 12:57
PROVIDERS: PCP Internal Medicine; Referring Provider Internal Medicine; Visit Provider Internal Medicine
DX: Z12.31 Encounter for screening mammogram for malignant neoplasm of breast (principal); N28.1 Cyst of kidney, acquired; N94.9 Unspecified condition associated with female genital organs and menstrual cycle
CPT/HCPCS: 76770; 76856; 77063; 77067

== ENCOUNTER → 2024-05-27 | Outpatient (CLI) | payer MEDICARE, MEDICAID, SELFPAY ==
--- NOTE | 2024-05-27 12:31 | ECHOD_ITS ---
Reason For Study: DILATED AORTIC ROOT Procedure This was a 2D Doppler, Color Flow transthoracic echocardiogram. Exam performed in department. Left Ventricle Normal LV size. Left ventricular systolic function is normal. The left ventricular ejection fraction is 60 %. Stage 1 diastolic dysfunction. No regional wall motion abnormalities noted. Right Ventricle Normal RV size. Normal systolic function. Mitral Valve Systolic anterior motion of the mitral valve. Tricuspid Valve Normal tricuspid valve. Mild tricuspid valve insufficiency. Pulmonary artery systolic pressure is 30 mmHg. Great Vessels Mild to moderately dilated aortic root. The pulmonary artery is normal size. Inferior vena cava collapse with respiration. Pericardium/Pleural No pericardial effusion. MMode/2D Measurements & Calculations LVIDd: 3.9 cm IVSd: 1.2 cm LVOT diam: 2.0 cm LVIDs: 2.8 cm LVPWd: 1.1 cm FS: 27.2 % LVOT area: 3.1 cm2 LAV(MOD-bp): 23.4 ml SV(MOD-sp4): 29.5 ml LVAd ap4: 20.4 cm2 LAV(MOD-bp) Indexed: 12.7 ml/m2 LVLd ap4: 6.7 cm SI(MOD-sp4): 16.0 ml/m2 LAV(MOD-sp2): 20.4 ml EDV(MOD-sp4): 51.3 ml LAV(MOD-sp4): 25.7 ml EDV(sp4-el): 52.7 ml LVAs ap4: 12.3 cm2 LVLs ap4: 6.1 cm ESV(MOD-sp4): 21.8 ml ESV(sp4-el): 21.2 ml EF(MOD-sp4): 57.5 % EF(sp4-el): 59.7 % SV(sp4-el): 31.5 ml LA A4 area: 11.2 cm2 LA dimension(2D): 3.4 cm RA A4 area: 15.7 cm2 Time Measurements MV dec time: 0.23 sec Doppler Measurements & Calculations MV E max van: 82.1 cm/sec Lat Peak E' Van: 8.9 cm/sec Med Peak E' Van: 7.5 cm/sec MV A max van: 93.1 cm/sec E/E' lat: 9.3 E/E' med: 11.0 MV E/A: 0.88 MV V2 max: 97.4 cm/sec MV dec slope: 365.1 cm/sec2 Ao V2 max: 132.0 cm/sec MV max P.8 mmHg Ao max P.0 mmHg MV V2 mean: 54.0 cm/sec Ao V2 mean: 83.6 cm/sec MV mean P.4 mmHg Ao mean P.3 mmHg MV V2 VTI: 37.1 cm Ao V2 VTI: 28.0 cm MVA(VTI): 2.3 cm2 AV (velocity ratio): 0.99 ANTONIETTA(I,D): 3.0 cm2 ANTONIETTA(V,D): 2.9 cm2 LV V1 max: 126.4 cm/sec SV(LVOT): 84.5 ml PA V2 max: 107.9 cm/sec LV V1 max P.4 mmHg PA V2 mean: 65.5 cm/sec LV V1 mean P.9 mmHg LV V1 mean: 78.7 cm/sec LV V1 VTI: 27.6 cm TR max van: 263.5 cm/sec TR max P.8 mmHg ECHO/Echo Complete Interpretation Summary Normal LV size. Left ventricular systolic function is normal. The left ventricular ejection fraction is 60 %. Mild to moderately dilated aortic root. Stage 1 diastolic dysfunction. Pulmonary artery systolic pressure is 30 mmHg. Ordering Physician: Rosanne Flores Referring Physician: Rosanne Flores Performed By: Sulema Szymanski RCS
== END | disposition home or self-care (01) ==
LOC: CVS 12:27
PROVIDERS: PCP Internal Medicine; Referring Provider Physician Assistant Medical; Visit Provider Physician Assistant Medical
DX: I77.810 Thoracic aortic ectasia (principal); R06.2 Wheezing
CPT/HCPCS: 93306

== ENCOUNTER → 2024-07-19 | Outpatient (CLI) | payer MEDICARE, MEDICAID, SELFPAY ==
--- NOTE | 2024-07-19 16:16 | CT_ITS ---
PROCEDURE: CTA CHEST W CONTRAST REASON FOR EXAM: Shortness of breath. Thoracic aortic ectasia. TECHNIQUE: Axial CTA imaging of the chest with intravenous contrast. Sagittal, coronal and 3D reconstructions were performed .. CONTRAST: 100 mL of Isovue 370 COMPARISON: 11/07/2022 FINDINGS: Hardware: None. Lymph nodes: No mediastinal hilar or axillary lymphadenopathy. Heart: Normal heart size. No pericardial effusion. Thoracic Aorta: There is mild ectasia involving the ascending aorta measuring approximately 3.8 cm, stable in the interval. No dissection is identified. Minimal atherosclerotic calcifications and plaque formation within the aortic arch Pulmonary Vessels: No evidence of acute pulmonary emboli through the major subsegmental branches. Lungs and Airways: Lungs are well aerated. Trace atelectasis or scarring within the lingula and left lower lobe. No focal airspace consolidation is identified. Pleura: No pleural effusion. No pneumothorax. Upper Abdomen: Visualized portions of the liver are within normal limits. Prior cholecystectomy. Heterogeneous enhancement of the spleen likely secondary to timing of bolus. Right renal cyst measures approximately 3 cm. Bones: The osseous thorax appears intact. Minimal spondylotic changes involving the midthoracic spine. CT/CTA Chest W/WO Contrast IMPRESSION: 1. Mild ectasia involving the ascending aorta measuring up to 3.8 cm, stable in the interval. No dissection. 2. No evidence of pulmonary embolism. 3. Trace atelectasis or scarring within the lingula and left lower lobe. No fo baldemar airspace consolidation. 4. Additional findings, as detailed above. One or more dose reduction techniques were used (e.g., Automated exposure contr ol, adjustment of the mA and/or kV according to patient size, use of iterative reconstruction technique). Reading Location: [facility]
== END | disposition home or self-care (01) ==
PROVIDERS: PCP Internal Medicine; Referring Provider Physician Assistant Medical; Visit Provider Physician Assistant Medical
DX: I77.810 Thoracic aortic ectasia (principal)
CPT/HCPCS: 71275; Q9967

== ENCOUNTER → 2024-08-13 | Outpatient (CLI) | payer MEDICARE, MEDICAID, SELFPAY | END | disposition home or self-care (01) | PROVIDERS: PCP Internal Medicine; Referring Provider Internal Medicine; Visit Provider Internal Medicine | DX: R06.09 Other forms of dyspnea (principal) | CPT/HCPCS: 94060; 94726; 94729 ==

== ENCOUNTER → 2024-09-11 | Outpatient (CLI) | payer MEDICARE, MEDICAID, SELFPAY | END | disposition home or self-care (01) | LOC: LABSPEC 12:52 | PROVIDERS: PCP Internal Medicine; Visit Provider Physician Assistant | DX: R82.90 Unspecified abnormal findings in urine (principal) | CPT/HCPCS: 87086; 87088 ==

== ENCOUNTER → 2024-11-04 | Outpatient (CLI) | payer MEDICARE, MEDICAID, SELFPAY ==
[2024-11-04 13:02] LABS: Bacteria 0 SEEN /hpf (None Seen); Mucous, Urine 0 SEEN /hpf (<or=2+); Red Blood Cells-Urine 0 SEEN /hpf (0-5)
[2024-11-04 15:58] LABS: Color, Urine Yellow (Yellow); Glucose, Dipstick Normal (Normal); Ketone-Dipstick Negative (Negative); Leukocyte Esterase-Dipstick 100 /ul (Negative); Nitrite-Dipstick Negative (Negative); Occult Blood-Urine Negative /ul (Negative); Protein-Dipstick 15 mg/dl (Negative); Specific Gravity, Urine 1.015 (1.002-1.030); Urine Bilirubin Dipstick Negative (Negative); Urine Clarity Sl. Cloudy (Clear); Urine Urobilinogen Normal (Normal)
[2024-11-04 16:47] LABS: Squamous Epithelial Cells - UA 0-5 SEEN /hpf (5-10); White Blood Cells 0-5 SEEN /hpf (0-5)
== END | disposition home or self-care (01) ==
PROVIDERS: PCP Internal Medicine; Referring Provider Internal Medicine; Visit Provider Internal Medicine
DX: N39.0 Urinary tract infection, site not specified (principal)
CPT/HCPCS: 81001; 87086; 87088

== ENCOUNTER → 2024-12-31 | Outpatient (CLI) | payer MEDICARE, MEDICAID, SELFPAY | END | disposition home or self-care (01) | LOC: MTLAB 16:39 | PROVIDERS: PCP Internal Medicine; Referring Provider Physician Assistant Medical; Visit Provider Physician Assistant Medical | DX: R73.09 Other abnormal glucose (principal) | CPT/HCPCS: 36415; 83036 ==